=== PATIENT | male | born 1980 | race Caucasian/White ===

== ENCOUNTER → 2023-05-03 11:05 | Outpatient (OUT) | payer OTHER, SELFPAY ==
--- NOTE | 2023-05-03 11:13 | XR_ITS ---
The [address] [address] Patient Name: RHEA ANTOINE MRN: [id number] date: 1980 Sex: M Assigned Patient Location: [facility] Current Patient Location: Accession/Order Number: [id number] Exam Date: 05/03/2023 11:15 Report Date: 05/04/2023 07:26 At the request of: REESE HE Procedure: XR hand LT min 3V EXAM: XR hand LT min 3V HISTORY: Hand Pain COMPARISON: 02/05/2023. TECHNIQUE: Routine views of the XR hand LT min 3V FINDINGS/ XR/XR hand LT min 3V IMPRESSION: 1. No acute fractures. Chronic mild third middle phalangeal fracture deformity. 2. Unremarkable soft tissues. 3. Normal joint spacing. Electronically authenticated by: ADEN WOODS Date: 05/04/2023 07:26
== END | disposition home or self-care (01) ==
LOC: RAD 11:09
PROVIDERS: Visit Provider Orthopaedic Surgery
DX: S62.623D Displaced fracture of middle phalanx of left middle finger, subsequent encounter for fracture with routine healing (principal)
CPT/HCPCS: 73130

== ENCOUNTER 2024-07-24 11:43 | Outpatient (OUT) | payer OTHER, SELFPAY ==
--- OUTSIDE RECORDS SUMMARY | 2024-07-24 12:05 | XMS_ITS | CCD ---
Demographics Address [address] [place] [address] Home Phone Mobile Phone Preferred Language en Marital Status Scientologist Affiliation Unknown Race White Ethnic Group or Author Organization [facility] Care Team Providers Care Manager Labor Delivery Name Role Phone No, Physician Primary Care Provider Unavailabl e NO, PHYSICIAN Primary Care Unavailable PAWAN LLANOS Attending Unavail able Alpa LEMUS, [facility] Primary Care Provider [id number] Unavailable Primary Care Provider UnavailSolo Bautista DO Primary Care Provider [phone] Solo Arita DO Primary Care Provider [phone] Solo Arita DO Primary Care Provider No, Physician Primary Care Provider UnavailSOLO Bautista Primary Care Unavailable SOLO ARITA Referring Unavailable SOLO ARITA Primary Care Unavailable LAURENT SHEPARD Referring Unavailable SOLO ARITA Primary Care Unavailable LAURENT SHEPARD Referring Unavailable SOLO ARITA Primary Care Unavailable SOLO ARITA Attending Unavailable SOLO ARITA Referring Unavailable SOLO ARITA Referring Unavailable SOLO ARITA Primary Care Unavailable SOLO ARITA Primary Care Unavailable SOLO ARITA Primary Care Unavailable GEOVANNY LAMBERT Attending Unavailable SOLO ARITA Referring Unavailable SOLO ARITA Primary Care Unavailable Allergies Allergy Classification Reported Allergen(s) Allergy Type Date of Onset Reaction(s) Facility (4 sources) Acetaminophen / HYDROcodone Drug Allergy 3 [facility] (2 sources) HYDROcodone / Ibuprofen Drug Allergy 4 [email or web address] Medications Current Medications Medication Drug Class(es) Dates Sig (Normalized) Sig (Original) acetaminophen 325 mg / oxyCODONE hydrochloride 5 mg oral tablet (11 sources) Opioid Agonist Start: 07-30-2023 End: 08-06-2023 oxyCODONE-acetamin ophen (PERCOCET) 5-325 MG per tablet Indications: Chronic left-sided thoracic back pain Take 1 tablet by mouth every 6 hours as needed for Pain for up to 7 days. Intended supply: 3 days. Take lowest dose possible to manage pain Max Daily Amount: 4 tablets 28 tablet 0 07/30/2023 08/06/2023 Active Start: 11-06-2022 take 1 tablet by laina every twelve hours oxyCODONE-acetaminophen (PERCOCET) 5-325 MG per tablet TAKE ONE TABLET BY MOUTH EVERY 12 HOURS FOR 9 DAYS 0 11/06/2022 Active Start: 10-20-2022 End: 10-23-2022 oxyCODONE-acetaminophen (PER COCET) 5-325 MG per tablet Indications: Laceration of left ring finger without foreign body without damage to nail, initial encounter Take 1 tablet by mouth every 8 hours as needed for Pain for up to 3 days. Intended supply: 3 days. Take lowest dose possible to manage pain Max Daily Amount: 3 tablets 12 tablet 0 10/20/2022 10/23/2022 Active Start: 10-15-2022 End: 10-20-2022 oxyCODONE-acetaminophen (PER COCET) 5-325 MG per tablet Indications: Intractable pain , Right renal stone Take 1 tablet by mouth every 4 hours as needed for Pain for up to 5 days. Max Daily Amount: 6 tablets 20 tablet 0 10/15/2022 10/20/2022 Active [id number] 200 actuat albuterol 0.09 mg/actuat metered dose inhaler (4 sources) beta2-Adrenergic Agonist Start: 02-09-2023 take 2 puff(s) by inhalation four times daily as needed for wheezing albuterol sulfate HFA (VENTOLIN HFA) 108 (90 Base) MCG/ACT inhaler Indications: Cough in adult Inhale 2 puffs into the lungs 4 times daily as needed for Wheezing 18 g 5 02/09/2023 Active 24 hr amphetamine aspartate 1.25 mg / amphetamine sulfate 1.25 mg / dextroamphetamine saccharate 1.25 mg / dextroamphetamine sulfate 1.25 mg extended release oral capsule (4 sources) Central Nervous System Stimulant Start: 11-19-2023 End: 01-18-2024 take 1 capsule by mouth once daily amphetamine-dext roamphetamine (ADDERALL XR) 5 MG extended release capsule Indications: Attention deficit hyperactivity disorder (ADHD), predominantly inattentive type , Medication refill Take 1 capsule by mouth daily for 30 days. Max Daily Amount: 5 mg 30 capsule 0 12/19/2023 01/18/2024 Active Start: 06-30-2023 End: 07-30-2023 take 1 capsule by mouth once daily amphetamine-dextroamphetamine (ADDERALL XR) 5 MG extended release capsule Indications: Attention deficit hyperactivity disorder (ADHD), predominantly inattentive type Take 1 capsule by mouth daily for 30 days. Max Daily Amount: 5 mg 30 capsule 0 06/30/2023 Active baclofen 10 mg oral tablet (2 sources) gamma-Aminobutyric Acid-ergic Agonist Start: 06-30-2023 take 1 tablet by mouth three times daily baclofen (LIORESAL) 10 MG tablet Indications: Chronic left-sided thoracic back pain , Back strain, initial encounter Take 1 tablet by mouth 3 times daily 30 tablet 5 06/30/2023 Active 24 hr buPROPion hydrochloride 150 mg extended release oral tablet (4 sources) Aminoketone Start: 02-23-2024 take 1 tablet by mouth once daily in the morning buPROPion (WELLBUTRIN XL) 150 MG extended release tablet Indications: Depressed mood TAKE 1 TABLET BY MOUTH EVERY MORNING 30 tablet 5 02/23/2024 Active Start: 06-30-2023 take 1 tablet by laina th once daily in the morning buPROPion (WELLBUTRIN XL) 150 MG extended release tablet Indications: Depressed mood Take 1 tablet by mouth every morning 30 tablet 5 06/30/2023 Active cariprazine 1.5 mg oral capsule (1 source) Atypical Antipsychotic Start: 04-07-2024 take 1 capsule by mouth once daily cariprazine hcl (VRAYLAR) 1.5 MG capsule Indications: Depressed mood , Anxiety , Bipolar 1 disorder (HCC) Take 1 capsule by mouth daily LOTS [id number] EXP 06/13/2024 (3box) and [id number] EXP 06/13/2024 (1box) 28 capsule 04/07/2024 Active celecoxib 200 mg oral capsule (1 source) Nonsteroidal Anti-inflammatory Drug Start: 06-15-2023 celecoxib (CELEBREX) 200 MG capsule cephalexin 500 mg oral capsule (3 sources) Cephalosporin Antibacterial Start: 10-20-2022 take 1 capsule by mouth three times daily cephALEXin (KEFLEX) 500 MG capsule Take 1 capsule by mouth 3 times daily 21 capsule 0 10/20/2022 Active 12 hr cetirizine hydrochloride 5 mg / pseudoephedrine hydrochloride 120 mg extended release oral tablet (6 sources) alpha-Adrenergic Agonist, Histamine-1 Receptor Antagonist Start: 09-01-2023 take 5-120 mg by mouth once ALLERGY RELIEF/NASAL DECONGEST 5-120 MG per extended release tablet TAKE ONE TABLET BY MOUTH TWICE A DAY 60 tablet 5 09/01/2023 Active Start: 12-16-2022 End: 06-14-2023 take 5-120 mg by mouth once cetirizine-psuedoephedrine (ZYRTEC-D) 5- 120 MG per extended release tablet Take 1 tablet by mouth 2 times daily 60 tablet 5 12/16/2022 06/14/2023 Active ciprofloxacin 500 mg oral tablet (1 source) Quinolone Antimicrobial Start: 10-15-2022 End: 10-22-2022 take 1 tablet by mouth twice daily ciprofloxacin (CIPRO) 500 MG tablet Take 1 tablet by mouth 2 times daily for 7 days 14 tablet 0 10/15/2022 10/22/2022 Active 1 ml dexamethasone phosphate 10 mg/ml injection (1 source) Corticosteroid Start: 10-23-2021 dexamethasone (PF) (DECADRON) injection 10 mg Start: 10-23-2021 dexamethasone (PF) (DECADRON) injection 10 mg diclofenac sodium 50 mg delayed release oral tablet (9 sources) Nonsteroidal Anti-inflammatory Drug Start: 11-02-2023 take 1 tablet by mouth twice daily diclofenac (VOLTAREN) 50 MG EC tablet Indications: Acute pain of right shoulder , Right wrist pain , De Quervain's tenosynovitis, right , Tendinopathy of right rotator cuff , Biceps tendonitis on right Take 1 tablet by mouth 2 times daily 60 tablet 3 11/02/2023 Active Start: 07-13-2023 take 1 tablet by laina th twice daily diclofenac (VOLTAREN) 75 MG EC tablet Indications: Chronic left-sided thoracic back pain Take 1 tablet by mouth 2 times daily 60 tablet 2 07/13/2023 Active Start: 12-21-2022 diclofenac sod ium (VOLTAREN) 1 % GEL Apply 2 g topically 4 times daily 150 g 2 12/21/2022 Active Start: 10-22-2022 take 1 tablet by laina th twice daily diclofenac (VOLTAREN) 50 MG EC tablet Indications: Contusion of left hand including fingers, subsequent encounter , Laceration of left hand without foreign body, subsequent encounter , Nondisplaced fracture of distal phalanx of left middle finger, subsequent encounter for fracture with routine healing Take 1 tablet by mouth 2 times daily 60 tablet 0 10/22/2022 Active FLUoxetine 20 mg oral capsule (2 sources) Serotonin Reuptake Inhibitor Start: 09-04-2022 take 1 capsule by mouth once daily FLUoxetine (PROZAC) 20 MG capsule Indications: Anxiety , Bipolar 1 disorder (HCC) , Mixed obsessional thoughts and acts Take 1 capsule by mouth daily 30 capsule 0 09/04/2022 Active fluticasone propionate 0.05 mg/actuat metered dose nasal spray (5 sources) Corticosteroid Start: 04-19-2023 take 2 spray(s) nasal route once daily fluticasone (FLONASE) 50 MCG/ACT nasal spray Indications: Cough in adult , Nasal congestion , Medication refill 2 sprays by Each Nostril route daily 48 g 1 04/19/2023 Active Start: 02-04-2023 take 2 spray(s) nasa l route once daily fluticasone (FLONASE) 50 MCG/ACT nasal spray Indications: Cough in adult , Nasal congestion 2 sprays by Each Nostril route daily 48 g 1 02/04/2023 Active gabapentin 400 mg oral capsule (11 sources) Anti-epileptic Agent Start: 02-23-2024 End: 08-21-2024 take 1 capsule by mouth once daily in the morning, then take 1 capsule by mouth once daily in the evening gabapentin (NEURONTIN) 400 MG capsule Indications: Chronic left-sided thoracic back pain TAKE ONE CAPSULE BY MOUTH EVERY MORNING AND 1 CAP EVERY EVENING 180 capsule 1 02/23/2024 08/21/2024 Active Start: 08-06-2023 End: 02-02-2024 take 1 capsule by mouth in the morning gabapentin (NEURONTIN) 400 MG capsule Indications: Chronic left-sided thoracic back pain Take 1 capsule by mouth in the morning and 1 capsule in the evening. Do all this for 180 days. 180 capsule 1 08/06/2023 02/02/2024 Active Start: 07-09-2023 End: 12-08-2023 take 1 capsule by mouth once daily at bedtime gabapentin (NEURONTIN) 100 MG capsule Indications: Bipolar 1 disorder (HCC) , Mixed obsessional thoughts and acts , Anxiety TAKE (ONE) CAPSULE (100MG) BY MOUTH EVERY MORNING AND (4) CAPSULES (400MG) EVERY NIGHT AT BEDTIME 150 capsule 5 07/09/2023 12/08/2023 Active Start: 01-29-2023 End: 02-26-2023 take 1 capsule by mouth once daily in the morning, then take 4 capsules by mouth once daily at bedtime gabapentin (NEURONTIN) 100 MG capsule Indications: Bipolar 1 disorder (HCC) , Mixed obsessional thoughts and acts , Anxiety Take 100 mg PO qAM and 400 mg qHS Intended supply: 180 days 150 capsule 5 01/29/2023 02/26/2023 Active Start: 12-28-2022 End: 01-25-2023 take 1 capsule by mouth once daily in the morning, then take 2 capsules by mouth once daily at bedtime gabapentin (NEURONTIN) 100 MG capsule Indications: Bipolar 1 disorder (HCC) , Mixed obsessional thoughts and acts , Anxiety Take 100 mg PO qAM and 200 mg qHS Intended supply: 30 days 90 capsule 0 12/28/2022 01/25/2023 Active Start: 11-24-2022 End: 12-23-2022 take 1 capsule by mouth once daily in the morning, then take 2 capsules by mouth once daily at bedtime gabapentin (NEURONTIN) 100 MG capsule Indications: Bipolar 1 disorder (HCC) , Mixed obsessional thoughts and acts , Anxiety Take 100 mg PO qAM and 200 mg qHS Intended supply: 30 days 90 capsule 0 11/24/2022 12/23/2022 Active Start: 10-02-2022 End: 11-01-2022 take 1 capsule by mouth once daily in the morning, then take 2 capsules by mouth once daily at bedtime gabapentin (NEURONTIN) 100 MG capsule Indications: Bipolar 1 disorder (HCC) , Mixed obsessional thoughts and acts , Anxiety Take 100 mg PO qAM and 200 mg qHS Intended supply: 30 days 90 capsule 0 10/02/2022 11/01/2022 Active ibuprofen 800 mg oral tablet (1 source) Nonsteroidal Anti-inflammatory Drug Start: 04-10-2024 take 1 tablet by mouth twice daily as needed for pain ibuprofen (ADVIL;MOTRIN) 800 MG tablet Indications: Chronic right shoulder pain , Osteoarthritis of glenohumeral joint, right , Supraspinatus tendinitis, right Take 1 tablet by mouth 2 times daily as needed for Pain 180 tablet 1 04/10/2024 Active lidocaine 0.05 mg/mg medicated patch (6 sources) Antiarrhythmic, Amide Local Anesthetic Start: 10-19-2023 End: 04-16-2024 apply 1 dose transdermal route once daily lidocaine (LIDODERM) 5 % Indications: Medication refill Place 1 patch onto the skin daily 12 hours on, 12 hours off. 30 patch 5 10/19/2023 04/16/2024 Active Start: 07-13-2023 End: 10-11-2023 apply 1 dose transdermal route once daily lidocaine (LIDODERM) 5 % Indications: Chronic left-sided thoracic back pain Place 1 patch onto the skin daily 12 hours on, 12 hours off. 30 patch 2 07/13/2023 10/11/2023 Active Start: 10-20-2022 End: 10-20-2022 lidocaine 1 % injection 5 mL Start: 10-23-2021 End: 10-24-2021 Lidocaine (ASPERCREME) 4 % t opical patch 1 Patch Start: 10-23-2021 apply 1 dose topically once da louise lidocaine patch (LIDODERM) 5 % topical patch Apply 1 Patch daily 15 Patch 0 10/23/2021 Active melatonin 10 mg oral tablet (4 sources) Start: 10-19-2023 take 1 tablet by mouth once at bedtime Melatonin 10 MG TABS Indications: Difficulty falling asleep at night until face worker hours , Medication refill Take 10 mg by mouth at bedtime 90 tablet 3 10/19/2023 Active Start: 06-10-2023 take 1 tablet by laina th once daily melatonin (RA MELATONIN) 3 MG TABS tablet Indications: Difficulty falling asleep at night until face worker hours Take 1 tablet by mouth daily 30 tablet 3 06/10/2023 Active meloxicam 15 mg oral tablet (1 source) Nonsteroidal Anti-inflammatory Drug Start: 12-31-2023 take 1 tablet by mouth once daily meloxicam (MOBIC) 15 MG tablet Indications: Osteoarthritis of glenohumeral joint, right Take 1 tablet by mouth daily 30 tablet 5 12/31/2023 Active methocarbamol 500 mg oral tablet (1 source) Muscle Relaxant Start: 10-23-2021 take 1 tablet by mouth four times daily as needed methocarbamoL (ROBAXIN) 500 mg tablet Take 1 Tab by mouth four times a day as needed 24 Tab 0 10/23/2021 Active montelukast 10 mg oral tablet (4 sources) Leukotriene Receptor Antagonist Start: 02-23-2024 take 1 tablet by mouth once daily montelukast (SINGULAIR) 10 MG tablet TAKE 1 TABLET BY MOUTH DAILY 30 tablet 2 02/23/2024 Active Start: 11-12-2023 take 1 tablet by laina once daily montelukast (SINGULAIR) 10 MG tablet TAKE 1 TABLET BY MOUTH DAILY 30 tablet 2 11/12/2023 Active Start: 07-19-2023 take 1 tablet by laina once daily montelukast (SINGULAIR) 10 MG tablet Take 1 tablet by mouth daily 30 tablet 2 07/19/2023 Active nicotine 2 mg chewing gum (2 sources) Cholinergic Nicotinic Agonist Start: 07-23-2023 nicotine polacrilex (NICORETTE) 2 MG gum Indications: Nicotine dependence due to vaping tobacco product Weeks 1 to 6: Chew 1 piece of gum every 1 to 2 hours Weeks 7 to 9: Chew 1 piece of gum every 2 to 4 hours Weeks 10 to 12: Chew 1 piece of gum every 4 to 8 hours Maximum 24 pieces/day 110 each 3 07/23/2023 Active OLANZapine 10 mg oral tablet (2 sources) Atypical Antipsychotic Start: 09-04-2022 take 1 tablet by mouth once daily OLANZapine (ZYPREXA) 10 MG tablet Indications: Anxiety , Bipolar 1 disorder (HCC) , Mixed obsessional thoughts and acts Take 1 tablet by mouth nightly 30 tablet 0 09/04/2022 Active ondansetron 4 mg oral tablet (10 sources) Serotonin-3 Receptor Antagonist Start: 04-07-2024 take 1 tablet by mouth three times daily as needed for nausea ondansetron (ZOFRAN) 4 MG tablet Indications: Nausea Take 1 tablet by mouth 3 times daily as needed for Nausea or Vomiting 30 tablet 04/07/2024 Active Start: 10-19-2023 take 1 tablet by laina th three times daily as needed for nausea ondansetron (ZOFRAN-ODT) 4 MG disintegrating tablet Indications: Medication refill Take 1 tablet by mouth 3 times daily as needed for Nausea or Vomiting 21 tablet 2 10/19/2023 Active Start: 07-23-2023 take 1 tablet by laina th three times daily as needed for nausea ondansetron (ZOFRAN-ODT) 4 MG disintegrating tablet Indications: Medication refill Take 1 tablet by mouth 3 times daily as needed for Nausea or Vomiting 21 tablet 0 07/23/2023 Active Start: 01-21-2023 take 1 tablet by laina th three times daily as needed for nausea ondansetron (ZOFRAN-ODT) 4 MG disintegrating tablet Take 1 tablet by mouth 3 times daily as needed for Nausea or Vomiting 21 tablet 0 01/21/2023 Active Start: 10-14-2022 take 1 tablet by laina th three times daily as needed for nausea ondansetron (ZOFRAN) 4 MG tablet Indications: Ureteral stone with hydronephrosis Take 1 tablet by mouth 3 times daily as needed for Nausea or Vomiting 15 tablet 0 10/14/2022 Active tamsulosin hydrochloride 0.4 mg oral capsule (3 sources) alpha-Adrenergic Cristal Start: 10-14-2022 take 1 capsule by mouth once daily tamsulosin (FLOMAX) 0.4 MG capsule Indications: Ureteral stone with hydronephrosis Take 1 capsule by mouth daily 30 capsule 0 10/14/2022 Active traMADol hydrochloride 50 mg oral tablet (1 source) Opioid Agonist Start: 12-21-2022 End: 12-28-2022 take 1 tablet by mouth every six hours as needed for pain traMADol (ULTRAM) 50 MG tablet Indications: Abnormal MRI, thoracic spine Take 1 tablet by mouth every 6 hours as needed for Pain for up to 7 days. Intended supply: 3 days. Take lowest dose possible to manage pain Max Daily Amount: 200 mg 12 tablet 0 12/21/2022 12/28/2022 Active triamcinolone acetonide 1 mg/ml topical cream (5 sources) Corticosteroid Start: 04-19-2023 triamcinolone (KENALOG) 0.1 % cream Indications: Eczema of both hands Apply topically 2 times daily. 28.4 g 1 04/19/2023 Active Start: 07-29-2021 End: 08-12-2021 triamcinolone (KENALOG) 0.1 % cream Indications: Hand dermatitis Apply topically 2 (two) times a day for 14 days . 80 g 0 07/29/2021 08/12/2021 Active Completed/Discontinued Medications Medication Drug Class(es) Dates Sig (Normalized) Sig (Original) acetaminophen 325 mg oral tablet (1 source) Start: 10-20-2022 End: 10-20-2022 acetaminophen (TYLENOL) tablet 650 mg ceFAZolin (ANCEF) 1,000 mg in sodium chloride 0.9 % 50 mL IVPB (mini-bag) (1 source) Start: 10-20-2022 End: 10-20-2022 ceFAZolin (ANCEF) 1,000 mg in sodium chloride 0.9 % 50 mL IVPB (mini-bag) diazePAM 5 mg oral tablet (1 source) Benzodiazepine Start: 10-23-2021 End: 10-23-2021 diazePAM (VALIUM) tablet 5 mg 2 ml fentaNYL 0.05 mg/ml injection (1 source) Opioid Agonist Start: 10-20-2022 End: 10-20-2022 fentaNYL (SUBLIMAZE) injection 100 mcg 1 ml ketorolac tromethamine 30 mg/ml cartridge (2 sources) Nonsteroidal Anti-inflammatory Drug, Cyclooxygenase Inhibitor Start: 10-01-2022 End: 10-01-2022 ketorolac (TORADOL) injection 30 mg Start: 10-23-2021 End: 10-23-2021 ketorolac (TORADOL) injectio n 15 mg Problems Active Problems Problem Classification Problem Date Documented Date Episodic/Chronic Anxiety disorders (20 sources) Anxiety; Translations: [Anxiety disorder, unspecified] Onset: 09-04-2022 Chronic Attention-deficit, conduct, and disruptive behavior disorders (2 sources) Attention deficit hyperactivity disorder, predominantly inattentive type; Translations: [Attention-deficit hyperactivity disorder, predominantly inattentive type] Onset: 10-19-2023 10-19-2023 Chronic Conditions associated with dizziness or vertigo (1 source) Peripheral vertigo; Translations: [Other peripheral vertigo, right ear] Episodic Mood disorders (20 sources) Bipolar I disorder; Translations: [Bipolar disorder, unspecified] Onset: 09-04-2022 Chronic Open wounds of extremities (2 sources) Laceration of left middle finger; Translations: [Laceration without foreign body of left middle finger without damage to nail, initial encounter] Episodic Other acquired deformities (2 sources) Contracture of joint of left hand; Translations: [Contracture, left hand] Onset: 11-30-2023 11-30-2023 Chronic Other circulatory disease (1 source) Elevated blood pressure; Translations: [Elevated blood-pressure reading, without diagnosis of hypertension] Episodic Other connective tissue disease (1 source) Pain in bilateral legs; Translations: [Pain in right leg] Episodic Other non-traumatic joint disorders (1 source) Shoulder pain; Translations: [Pain in left shoulder] Episodic Other screening for suspected conditions (not mental disorders or infectious disease) (2 sources) Magnetic resonance imaging of thoracic spine abnormal; Translations: [Abnormal findings on diagnostic imaging of other parts of musculoskeletal system] 07-14-2023 Episodic Residual codes; unclassified (1 source) Edema of lower leg ; Translations: [Localized edema] Episodic Substance-related disorders (4 sources) Tobacco dependence in remission; Translations: [Nicotine dependence, cigarettes, in remission] Onset: 06-30-2023 06-30-2023 Chronic Superficial injury; contusion (1 source) Contusion of left hand; Translations: [Contusion of left hand, initial encounter] Episodic Past or Other Problems Problem Classification Problem Date Documented Da te Episodic/Chronic Allergic reactions (20 sources) Hand eczema; Translations: [Dermatitis, unspecified] Onset: 02-04-1997 Episodic Fracture of upper limb (9 sources) Closed fracture of middle phalanx of middle finger; Translations: [Nondisplaced fracture of middle phalanx of left middle finger, initial encounter for closed fracture] Onset: 11-30-2023 Resolved: 01-07-2024 Episodic Nausea and vomiting (17 sources) Intractable nausea and vomiting; Translations: [Nausea with vomiting, unspecified] Onset: 10-14-2022 Resolved: 01-29-2023 10-14-2022 Episodic Other connective tissue disease (1 source) Bicipital tendinitis, right shoulder; Translations: [Bicipital tendinitis, right shoulder] Onset: 12-27-2023 Episodic Other connective tissue disease (1 source) Unspecified disorder of synovium and tendon, right shoulder; Translations: [Unspecified disorder of synovium and tendon, right shoulder] Onset: 12-27-2023 Episodic Other infections; including parasitic (19 sources) Personal history of other infectious and parasitic diseases; Translations: [History of COVID-19] Onset: 09-04-2022 09-04-2022 Episodic Other lower respiratory disease (2 sources) Hemoptysis; Translations: [Hemoptysis] Onset: 12-03-2023 12-03-2023 Episodic Other lower respiratory disease (2 sources) Dyspnea; Translations: [Shortness of breath] Onset: 12-03-2023 12-03-2023 Episodic Other lower respiratory disease (2 sources) Hemoptysis; Translations: [Hemoptysis] Onset: 12-03-2023 Episodic Other lower respiratory disease (2 sources) Shortness of breath; Translations: [Shortness of breath] Onset: 12-03-2023 Episodic Other non-traumatic joint disorders (1 source) Pain in right shoulder; Translations: [Pain in right shoulder] Onset: 12-27-2023 Episodic Spondylosis; intervertebral disc disorders; other back problems (4 sources) Acute low back pain; Translations: [Acute right-sided low back pain without sciatica] Onset: 10-19-2023 Episodic Sprains and strains (1 source) Strain of unspecified muscle, fascia and tendon at shoulder and upper arm level, right arm, initial encounter; Translations: [Strain of unspecified muscle, fascia and tendon at shoulder and upper arm level, right arm, initial encounter] Onset: 05-07-2023 Episodic Results Test Name Value Interpretation Reference Range Facility MRI SHOULDER RIGHT WO CONTRA STon 12-30-2023 MRI SHOULDER RIGHT WO CONTRAST HISTORY: Pain along the anterior aspect of the right shoulder for the past 6-8 months. Decreased range of motion. MRI SHOULDER RIGHT WO CONTRAST: 12/27/2023 9:01 AM EDT COMPARISON: Radiographs right shoulder 05/07/2023. TECHNIQUE: Multiplanar, multisequence MRI images of the shoulder were obtained. FINDINGS: ACROMIOCLAVICULAR JOINT AND ROTATOR CUFF OUTLET: There are mild degenerative changes of the acromioclavicular joint. There is moderate subchondral erosive change and bone marrow edema involving the distal clavicle. There is also moderate bone marrow edema within the acromion adjacent to the joint. There is a type II acromion and small subacromial enthesophyte causing mild narrowing of the supraspinatus outlet. There is a small amount of edema-like signal in the subacromial/subdeltoid space. ROTATOR CUFF: There is mild tendinopathy of the anterior supraspinatus tendon at its insertion. No significant rotator cuff tear is seen. No atrophy or strain of the rotator cuff musculature is seen. The bulk of the rotator cuff musculature appears within normal limits. BICEPS TENDON AND LABRUM: The long bicipital tendon appears grossly within normal limits and is located within the bicipital groove. There is a moderate amount of fluid surrounding the tendon within the bicipital groove. The labrum appears grossly within normal limits. GLENOHUMERAL JOINT: There are mild degenerative changes of the glenohumeral joint with marginal osteophyte formation of the inferior glenoid. No joint effusion. BONES: The bone marrow signal intensity is age appropriate. IMPRESSION: 1. Mild tendinopathy of the anterior supraspinatus tendon, but no rotator cuff tear is seen. 2. Mild subacromial/subdeltoid bursitis. 3. 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 4. Mild osteoarthritis of the glenohumeral joint. 5. Possible tenosynovitis surrounding the long bicipital tendon within the bicipital groove. However, no significant tendinopathy or tear of the tendon is seen. Interpreted by: Saravanan Elena MD Signed by: Saravanan Elena MD 12/30/23 Final result Normal [facility] Basic Metabolic Profon 12-02 Anion gap [Moles/Vol] 8 mmol/L Low 02-28 [facility] Comment on above: Performed By: #### B ADALGISA CDP #### [facility] [address] [place] [address] Csr Technician: Srinivas Crow MD BUN/CRE Ratio 20 Normal 03-03 [facility] Comment on above: Performed By: #### B ADALGISA CDP #### [facility] [address] [place] [address] Csr Technician: Srinivas Crow MD Calcium [Mass/Vol] 9.2 mg/dL Normal 8.6-10.4 [facility] Comment on above: Performed By: #### B ADALGISA, CDP #### [facility] [address] [place], [place] [id number] Csr Technician: Srinivas Crow MD Chloride [Moles/Vol] 105 mmol/L Normal 98-107 [facility] Comment on above: Performed By: #### B MP, CDP #### [facility] [address] [place], [place] [id number] Csr Technician: Srinivas Crow MD CO2 [Moles/Vol] 29 mmol/L Normal 20-31 [facility] Comment on above: Performed By: #### B ADALGISA, CDP #### [facility] [address] [place] [address] Csr Technician: Srinivas Crow MD Creatinine [Mass/Vol] 1.0 mg/dL Normal 0.7-1.2 [facility] Comment on above: Performed By: #### B ADALGISA, CDP #### [facility] [address] [place] [address] Csr Technician: Srinivas Crow MD GFR/1.73 sq M.predicted among non-blacks MDRD (S/P/Bld) [Vol rate/Area] mL/min/{1.73_m2} Normal >60 [facility] Comment on above: Result Comment: These results are not intended for use in patients <18 years of age. eGFR results are calculated without a race factor using the 2020 CKD-EPI equation. Careful clinical correlation is recommended, particularly when comparing to results calculated using previous equations. The CKD-EPI equation is less accurate in patients with extremes of muscle mass, extra-renal metabolism of creatine, excessive creatine ingestion, or following therapy that affects renal tubular secretion. Performed By: #### B MP, CDP #### [facility] [address] [place] [address] Csr Technician: Srinivas Crow MD Glucose [Mass/Vol] 93 mg/dL Normal 70-99 [facility] Comment on above: Performed By: #### B ADALGISA, CDP #### [facility] [address] [place], [place] [id number] Csr Technician: Srinivas Crow MD Potassium [Moles/Vol] 4.3 mmol/L Normal 3.7-5.3 [facility] Comment on above: Performed By: #### B ADALGISA, CDP #### [facility] [address] [place], [place] [id number] Csr Technician: Srinivas Crow MD Sodium [Moles/Vol] 142 mmol/L Normal 135-144 [facility] Comment on above: Performed By: #### B ADALGISA, CDP #### [facility] [address] [place], [place] [id number] Csr Technician: Srinivas Crow MD Urea nitrogen [Mass/Vol] 20 mg/dL Normal 6-20 [facility] Comment on above: Performed By: #### B ADALGISA, CDP #### [facility] [address] [place], [place] [id number] Csr Technician: Srinivas Crow MD CBC with Diffon 12-03-2023 Abs. Basophil 0.04 k/uL Normal 0.00-0.20 [facility] Comment on above: Performed By: #### B ADALGISA, CDP #### [facility] [address] [place], [place] [id number] Csr Technician: Srinivas Crow MD Abs.Imm.Granulocyte 0.02 k/uL Normal 0.00-0.30 [facility] Comment on above: Performed By: #### B ADALGISA, CDP #### [facility] [address] [place], [place] [id number] Csr Technician: Srinivas Crow MD Abs.Neutrophil (Seg) 4.16 k/uL Normal 2.1-6.5 [facility] Comment on above: Performed By: #### B ADALGISA, CDP #### [facility] [address] [place] [address] Csr Technician: Srinivas Crow MD Basophils/100 WBC (Bld) 1 % Normal 0-2 [facility] Comment on above: Performed By: #### B MP, CDP #### [facility] [address] [place] [address] Csr Technician: Srinivas Crow MD Eosinophils (Bld) [#/Vol] 0.16 10*3/uL Normal 0.00-0.40 [facility] Comment on above: Performed By: #### B MP, CDP #### [facility] [address] [place] [address] Csr Technician: Srinivas Crow MD Eosinophils/100 WBC (Bld) 3 % Normal 0-5 [facility] Comment on above: Performed By: #### B ADALGISA, CDP #### [facility] [address] [place] [address] Csr Technician: Srinivas Crow MD Erythrocyte distribution width (RBC) [Ratio] 13.6 % Normal 12.1-15.2 [facility] Comment on above: Performed By: #### B MP, CDP #### [facility] [address] [place] [address] Csr Technician: Srinivas Crow MD Hematocrit (Bld) [Volume fraction] 43.0 % Normal 41.0-53.0 [facility] Comment on above: Performed By: #### B MP, CDP #### [facility] [address] [place] [address] Csr Technician: Srinivas Crow MD Hemoglobin (Bld) [Mass/Vol] 15.0 g/dL Normal 13.5-17.5 [facility] Comment on above: Performed By: #### B MP, CDP #### [facility] [address] [place], [place] [id number] Csr Technician: Srinivas Crow MD Immature granulocytes/100 WBC (Bld) 0 % Normal 0-5 [facility] Comment on above: Performed By: #### B ADALGISA, CDP #### [facility] [address] [place] [address] Csr Technician: Srinivas Crow MD Lymphocytes (Bld) [#/Vol] 1.29 10*3/uL Normal 1.00-4.80 [facility] Comment on above: Performed By: #### B ADALGISA, CDP #### [facility] [address] [place] [address] Csr Technician: Srinivas Crow MD Lymphocytes/100 WBC (Bld) 21 % Normal 13-44 [facility] Comment on above: Performed By: #### B ADALGISA, CDP #### [facility] [address] [place] [address] Csr Technician: Srinivas Crow MD MCH (RBC) [Entitic mass] 31.7 pg Normal 26.0-34.0 [facility] Comment on above: Performed By: #### B ADALGISA, CDP #### [facility] [address] [place] [address] Csr Technician: Srinivas Crow MD MCHC (RBC) [Mass/Vol] 34.9 g/dL Normal 31.0-37.0 [facility] Comment on above: Performed By: #### B ADALGISA, CDP #### [facility] [address] [place] [address] Csr Technician: Srinivas Crow MD MCV (RBC) [Entitic vol] 90.9 fL Normal 80.0-100.0 [facility] Comment on above: Performed By: #### B ADALGISA, CDP #### [facility] [address] [place] [address] Csr Technician: Srinivas Crow MD Monocytes (Bld) [#/Vol] 0.48 10*3/uL Normal 0.00-1.00 [facility] Comment on above: Performed By: #### B MP, CDP #### [facility] [address] [place], [place] [phone] Csr Technician: Srinivas Crow MD Monocytes/100 WBC (Bld) 8 % Normal 5-9 [facility] Comment on above: Performed By: #### B MP, CDP #### [facility] [address] [place] [address] ([phone] Csr Technician: Srinivas Crow MD Neutrophil (Seg) 67 % Normal 39-75 [facility] Comment on above: Performed By: #### B MP, CDP #### [facility] [address] [place], [place] [phone] ([phone] Csr Technician: Srinivas Crow MD Platelet mean volume (Bld) [Entitic vol] 10.8 fL Normal 6.0-12.0 [facility] Comment on above: Performed By: #### B MP, CDP #### [facility] [address] [place], [place] [phone] ([phone] Csr Technician: Srinivas Crow MD Platelets (Bld) [#/Vol] 195 10*3/uL Normal 140-450 [facility] Comment on above: Performed By: #### B MP, CDP #### [facility] [address] [place] [address] Csr Technician: Srinivas Crow MD RBC (Bld) [#/Vol] 4.73 10*6/uL Normal 4.50-5.90 [facility] Comment on above: Performed By: #### B MP, CDP #### [facility] [address] [place] [address] Csr Technician: Srinivas Crow MD WBC (Bld) [#/Vol] 6.2 10*3/uL Normal 3.5-11.0 [facility] Comment on above: Performed By: #### B MP, CDP #### [facility] [address] [place] [address] Csr Technician: Srinivas Crow MD XR CHEST (2 VW)on 12-03-2023 XR CHEST (2 VW) EXAM: XR CHEST (2 VW ) HISTORY: Hemoptysis COMPARISON: None. IMPRESSION: FINDINGS/IMPRESSION: Normal sized heart with clear lungs. Interpreted by: Priyank Cruz Jr., MD Signed by: Priyank Cruz Jr., MD 12/03/23 Final result Normal [facility] XR Chest 2 Viewson FINDINGS/IMPRESSION: Normal sized heart with clear lungs. [facility] EXAM: XR CHEST (2 VW ) HISTORY: Hemoptysis COMPARISON: None. [facility] Priyank Cruz Jr., MD - 12/03/2023 EXAM: XR CHEST (2 VW) HISTORY: Hemoptysis COMPARISON: None. IMPRESSION: FINDINGS/IMPRESSION: Normal sized heart with clear lungs. [facility] Radiology Study observation (narrative) [facility] XR Chest 2 ViewsOrdered By: Priyank Cruz on 12-03-2023 [facility] Work Phone: XR SHOULDER RIGHT (MIN 2 VIE WS)on 05-07-2023 XR SHOULDER RIGHT (MIN 2 VIEWS) IMAGES REVIEWED: XR SHOULDER RIGHT (MIN 2 VIEWS) COMPARISON: None available. CLINICAL INDICATION: right shoulder pain IMPRESSION: FINDINGS/IMPRESSION: No evidence of acute osseous abnormality of the right shoulder. Interpreted by: Miguelangel Kingston MD Signed by: Miguelangel Kingston MD 05/07/23 Final result Normal [facility] XR HAND LEFT (MIN 3 VIEWS)on 02-05-2023 FINDINGS/IMPRESSION: 1. Healed fractures third and fifth fingers. 2. No acute change. [facility] EXAM: XR HAND LEFT (MIN 3 VIEWS) HISTORY: Disp fx of dist phalanx of L little finger, init for open fx. COMPARISON: 01/01/2023. [facility] Priyank Cruz Jr., MD - 02/05/2023 EXAM: XR HAND LEFT (MIN 3 VIEWS) HISTORY: Disp fx of dist phalanx of L little finger, init for open fx. COMPARISON: 01/01/2023. IMPRESSION: FINDINGS/IMPRESSION: 1. Healed fractures third and fifth fingers. 2. No acute change. [facility] Radiology Study observation (narrative) [facility] XR HAND LEFT (MIN 3 VIEWS)Or dered By: Priyank Cruz on 02-05-2023 [facility] [employer] Work Phone: XR HAND LEFT (MIN 3 VIEWS)on 11-27-2022 FINDINGS/IMPRESSION: 1. Left 3rd digit middle phalanx fracture in near-anatomic alignment unchanged. 2. Undisplaced tuft fracture distal phalanx 5th finger with continued healing. [facility] EXAM: XR HAND LEFT (MIN 3 VIEWS) HISTORY: Closed displaced fracture of distal phalanx of left little finger with routine healing, subsequent encounter COMPARISON: 11/19/2022 [facility] Priyank Cruz Jr., MD - 11/27/2022 EXAM: XR HAND LEFT (MIN 3 VIEWS) HISTORY: Closed displaced fracture of distal phalanx of left little finger with routine healing, subsequent encounter COMPARISON: 11/19/2022 IMPRESSION: FINDINGS/IMPRESSION: 1. Left 3rd digit middle phalanx fracture in near-anatomic alignment unchanged. 2. Undisplaced tuft fracture distal phalanx 5th finger with continued healing. [facility] Radiology Study observation (narrative) [facility] XR HAND LEFT (MIN 3 VIEWS)Or dered By: Priyank Cruz on 11-27-2022 [facility] Work Phone: XR HAND LEFT (MIN 3 VIEWS)on 11-13-2022 FINDINGS/IMPRESSION: 1. No change in the middle phalanx fracture third digit. 2. Mild soft tissue swelling. [facility] EXAM: XR HAND LEFT (MIN 3 VIEWS) HISTORY: Closed displaced fracture of distal phalanx of left little finger with routine healing. COMPARISON: 11/06/2022. [facility] Priyank Cruz Jr., MD - 11/13/2022 EXAM: XR HAND LEFT (MIN 3 VIEWS) HISTORY: Closed displaced fracture of distal phalanx of left little finger with routine healing. COMPARISON: 11/06/2022. IMPRESSION: FINDINGS/IMPRESSION: 1. No change in the middle phalanx fracture third digit. 2. Mild soft tissue swelling. [employer] Phone: Radiology Study observation (narrative) [employer] Phone: XR HAND LEFT (MIN 3 VIEWS)Or dered By: Priyank Cruz on 11-13-2022 [employer] Phone: XR HAND LEFT (MIN 3 VIEWS)on 11-06-2022 FINDINGS/IMPRESSION: 1. Predominantly transverse, nonarticular, fracture middle phalanx left 3rd digit without significant displacement. 2. No change. [facility] EXAM: XR HAND LEFT (MIN 3 VIEWS) HISTORY: Closed nondisplaced fracture of distal phalanx of left little finger, initial encounter COMPARISON: 10/30/2022 [facility] Priyank Cruz Jr., MD - 11/06/2022 EXAM: XR HAND LEFT (MIN 3 VIEWS) HISTORY: Closed nondisplaced fracture of distal phalanx of left little finger, initial encounter COMPARISON: 10/30/2022 IMPRESSION: FINDINGS/IMPRESSION: 1. Predominantly transverse, nonarticular, fracture middle phalanx left 3rd digit without significant displacement. 2. No change. [employer] Phone: Radiology Study observation (narrative) [employer] Phone: XR HAND LEFT (MIN 3 VIEWS)Or dered By: Priyank Cruz on 11-06-2022 [employer] Phone: XR HAND LEFT (MIN 3 VIEWS)on 10-20-2022 FINDINGS/IMPRESSION: 1. Fracture middle phalanx 3rd digit with overlying laceration. 2. Fracture distal phalanx 5th finger. [facility] EXAM: XR HAND LEFT (MIN 3 VIEWS) HISTORY: Reason for exam:->Contusion to third fourth and fifth fingers with lacerations COMPARISON: None. [facility] Priyank Cruz Jr., MD - 10/20/2022 EXAM: XR HAND LEFT (MIN 3 VIEWS) HISTORY: Reason for exam:->Contusion to third fourth and fifth fingers with lacerations COMPARISON: None. IMPRESSION: FINDINGS/IMPRESSION: 1. Fracture middle phalanx 3rd digit with overlying laceration. 2. Fracture distal phalanx 5th finger. [employer] Phone: Radiology Study observation (narrative) [employer] Phone: XR HAND LEFT (MIN 3 VIEWS)Or dered By: Priyank Cruz on 10-20-2022 [employer] Phone: XR SHOULDER LEFT (MIN 2 VIEW S)on 10-01-2022 Negative. [facility] EXAM: XR SHOULDER LE FT (MIN 2 VIEWS) HISTORY: The patient is a 42-year-old male. Reason for exam:->pain COMPARISON: None. FINDINGS: The left shoulder is radiographically negative with no evidence of fracture, dislocation, calcific tendonitis, or other osseous or articular abnormalities. The glenohumeral joint is grossly maintained. The acromioclavicular joint is maintained. The subacromial space is maintained. [facility] Remigio Hayden M D - 10/01/2022 EXAM: XR SHOULDER LEFT (MIN 2 VIEWS) HISTORY: The patient is a 42-year-old male. Reason for exam:->pain COMPARISON: None. FINDINGS: The left shoulder is radiographically negative with no evidence of fracture, dislocation, calcific tendonitis, or other osseous or articular abnormalities. The glenohumeral joint is grossly maintained. The acromioclavicular joint is maintained. The subacromial space is maintained. IMPRESSION: Negative. [employer] Phone: Radiology Study observation (narrative) [employer] Phone: XR SHOULDER LEFT (MIN 2 VIEW S)Ordered By: Remigio Hayden on 10-01-2022 [facility] Work Phone: CBC with Auto Differentialon 09-04-2022 Absolute Eos # 0.[address] [facility] Absolute Lymph # 1.[address] [facility] [facility] Absolute Alcorn # 0.[address] [facility] [facility] Basophils (Bld) [#/Vol] 0.00 10*3/uL [facility] Basophils/100 WBC (Bld) 1 % 0 - 2 % [facility] Differential Type YES [facility] Eosinophils/100 WBC (Bld) 3 % 0 - 5 % [facility] Hematocrit (Bld) [Volume fraction] 44.3 % 41 - 53 % [facility] Hemoglobin (Bld) [Mass/Vol] 15.4 g/dL 13.5 - 17.5 g/dL [facility] Interpretation and review of laboratory results Abnormal [facility] Lymphocytes/100 WBC (Bld) 24 % 13 - 44 % [facility] MCH (RBC) [Entitic mass] 31.0 pg 26 - 34 pg [facility] MCHC (RBC) [Mass/Vol] 34.7 g/dL 31 - 37 g/dL [facility] MCV (RBC) [Entitic vol] 89.6 fL 80 - 100 fL [facility] Monocytes/100 WBC (Bld) 10 % High 5 - 9 % [facility] Platelet distribution width (Bld) [Ratio] 14.3 % 12.1 - 15.2 % [facility] Platelets (Bld) [#/Vol] 223 10*3/uL [facility] RBC (Bld) [#/Vol] 4.95 10*6/uL 4.5 - 5.9 m/uL [facility] Segmented neutrophils/100 WBC (Bld) 62 % 39 - 75 % [facility] Segs Absolute 4.60 [facility] WBC (Bld) [#/Vol] 7.3 10*3/uL [facility] Comprehensive Metabolic Pane marisa 09-04-2022 Albumin [Mass/Vol] 4.6 g/dL 3.5 - 5.2 g/dL [facility] ALP [Catalytic activity/Vol] 102 U/L 40 - 129 U/L [facility] ALT [Catalytic activity/Vol] 39 U/L 5 - 41 U/L [facility] Anion gap [Moles/Vol] 8 mmol/L Low 9 - 17 mmol/L [facility] AST [Catalytic activity/Vol] 22 U/L NINF - 40 U/L [facility] Bilirubin [Mass/Vol] 0.5 mg/dL 0.3 - 1.2 mg/dL [facility] Calcium [Mass/Vol] 9.4 mg/dL 8.6 - 10. 4 mg/dL [facility] Chloride [Moles/Vol] 106 mmol/L 98 - 107 mmol/L [facility] CO2 [Moles/Vol] 26 mmol/L 20 - 31 mmol/L [facility] Creatinine [Mass/Vol] 1 mg/dL 0.70 - 1.20 mg/dL [facility] GFR/1.73 sq M.predicted MDRD (S/P/Bld) [Vol rate/Area] - PINF [facility] Comment on above: These results are not intended for use in patients <18 years of age. eGFR results are calculated without a race factor using the 2020 CKD-EPI equation. Careful clinical correlation is recommended, particularly when comparing to results calculated using previous equations. The CKD-EPI equation is less accurate in patients with extremes of muscle mass, extra-renal metabolism of creatine, excessive creatine ingestion, or following therapy that affects renal tubular secretion. Glucose [Mass/Vol] 98 mg/dL 70 - 99 mg/dL [facility] Interpretation and review of laboratory results Abnormal [facility] Potassium [Moles/Vol] 4.5 mmol/L 3.7 - 5.3 mmol/L [facility] Protein [Mass/Vol] 7.2 g/dL 6.4 - 8.3 g/dL [facility] Sodium [Moles/Vol] 140 mmol/L 135 - 144 mmol/L [facility] Urea nitrogen [Mass/Vol] 21 mg/dL High 6 - 20 mg/dL [facility] Urea nitrogen/Creatinine (Bld) [Mass ratio] 21 High 9 - 20 [facility] Lipid Panelon 09-04-2022 Cholesterol [Mass/Vol] 150 mg/dL NINF - 200 mg/dL [facility] Comment on above: Cholesterol Guidelines: <200 Desirable 200-240 Borderline >240 Undesirable Cholesterol in HDL [Mass/Vol] 47 mg/dL 40 - PINF mg/dL [facility] Comment on above: HDL Guidelines: <40 Undesirable 40-59 Borderline >59 Desirable Cholesterol in LDL [Mass/Vol] 90 mg/dL 0 - 130 mg/dL [facility] Comment on above: LDL Guidelines: <100 Desirable 100-129 Near to/above Desirable 130-159 Borderline >159 Undesirable Direct (measured) LDL and calculated LDL are not interchangeable tests. Cholesterol.total/C holesterol in HDL [Mass ratio] 3.2 {ratio} NINF - 5 [facility] Triglyceride [Mass/Vol] 65 mg/dL NINF - 150 mg/dL [facility] Comment on above: Triglyceride Guidelines: <150 Desirable 150-199 Borderline 200-499 High >499 Very high Based on AHA Guidelines for fasting triglyceride, March 2012. [facility] Patient Fasting?on 3 Patient Fasting? YES [facility] Vital Signs Date Time Vital Sign Value Performing Clinician Facility 10-20-2022 12:21-0400 Body mass index (BMI) [Ratio] 28.92 kg/m2 Geovanny Lambert MD Work Phone: [facility] 10-20-2022 12:21-0400 Body temperature 97.5 [degF] Geovanny Lambert MD Work Phone: [facility] 10-20-2022 12:21-0400 Body weight 86.27 kg Geovanny Lambert MD Work Phone: [facility] 10-20-2022 12:21-0400 Diastolic blood pressure 77 mm[Hg] Geovanny Lambert MD Work Phone: [employer] 10-20-2022 12:21-0400 Heart rate 60 /min Geovanny Lambert MD Work Phone: [facility] [employer] 10-20-2022 12:21-0400 Respiratory rate 20 /min Geovanny Lambert MD Work Phone: [facility] [employer] 10-20-2022 12:21-0400 SaO2% (BldA) [Mass fraction] 100 % Geovanny Lambert MD Work Phone: [employer] 10-20-2022 12:21-0400 Systolic blood pressure 143 mm[Hg] Geovanny Lambert MD Work Phone: [facility] [employer] 10-01-2022 19:19-0400 Body height 172.7 cm Samia Bowers DO Work Phone: [employer] 10-01-2022 19:19-0400 Body mass index (BMI) [Ratio] 28.62 kg/m2 Samia Bowers DO Work Phone: [employer] 10-01-2022 19:19-0400 Body temperature 98.2 [degF] Samia Bowers DO Work Phone: [employer] 10-01-2022 19:19-0400 Body weight 85.37 kg Samia Bowers DO Work Phone: [employer] 10-01-2022 19:19-0400 Diastolic blood pressure 82 mm[Hg] Samia Bowers DO Work Phone: [employer] 10-01-2022 19:19-0400 Heart rate 67 /min Samia Bowers DO Work Phone: [employer] 10-01-2022 19:19-0400 Respiratory rate 20 /min Samia Bowers DO Work Phone: [employer] 10-01-2022 19:19-0400 SaO2% (BldA) [Mass fraction] 98 % Samia Bowers DO Work Phone: [employer] 10-01-2022 19:19-0400 Systolic blood pressure 134 mm[Hg] Samia Bowers DO Work Phone: [facility] [employer] 08-21-2022 19:46-0500 Body temperature 99.5 [degF] Scottie Sidhu MD Work Phone: [facility] [employer] 08-21-2022 19:46-0500 Body weight 86.91 kg Scottie Sidhu MD Work Phone: [facility] [employer] 08-21-2022 19:46-0500 Diastolic blood pressure 87 mm[Hg] Scottie Sidhu MD Work Phone: [facility] [employer] 08-21-2022 19:46-0500 Heart rate 70 /min Scottie Sidhu MD Work Phone: [facility] [employer] 08-21-2022 19:46-0500 Respiratory rate 16 /min Scottie Sidhu MD Work Phone: [facility] [employer] 08-21-2022 19:46-0500 SaO2% (BldA) [Mass fraction] 97 % Scottie Sidhu MD Work Phone: [facility] [facility] [employer] 08-21-2022 19:46-0500 Systolic blood pressure 131 mm[Hg] Scottie Sidhu MD Work Phone: [facility] [employer] 10-23-2021 23:02-0400 Diastolic blood pressure 73 mm[Hg] Blue Goins MD Work Phone: [employer] 10-23-2021 23:02-0400 Heart rate 59 /min Blue Goins MD Work Phone: [employer] 10-23-2021 23:02-0400 Respiratory rate 16 /min Blue Goins MD Work Phone: [employer] 10-23-2021 23:02-0400 SaO2% (BldA) [Mass fraction] 97 % Blue Goins MD Work Phone: [facility] 10-23-2021 23:02-0400 Systolic blood pressure 118 mm[Hg] Blue Goins MD Work Phone: [facility] 10-23-2021 21:24-0400 Body height 172.7 cm Blue Goins MD Work Phone: [facility] 10-23-2021 21:24-0400 Body mass index (BMI) [Ratio] 32.69 kg/m2 Blue Goins MD Work Phone: [facility] 10-23-2021 21:24-0400 Body temperature 98.49 [degF] Blue Goins MD Work Phone: [facility] 10-23-2021 21:24-0400 Body weight 97.52 kg Blue Goins MD Work Phone: [facility] 07-29-2021 13:26-0500 Diastolic blood pressure 67 mm[Hg] Pawan Llanos PLANISHING PRESS OPERATOR Work Phone: [facility] Comment on above: recheck 07-29-2021 13:26-0500 Systolic blood pressure 133 mm[Hg] Pawan Llanos PLANISHING PRESS OPERATOR Work Phone: [facility] Comment on above: recheck 07-29-2021 11:11-0500 Body height 172.7 cm Pawan Llanos PLANISHING PRESS OPERATOR Work Phone: [facility] 07-29-2021 11:11-0500 Body mass index (BMI) [Ratio] 31.17 kg/m2 Pawan Llanos PLANISHING PRESS OPERATOR Work Phone: [facility] 07-29-2021 11:11-0500 Body temperature 98.2 [degF] Pawan Llanos PLANISHING PRESS OPERATOR Work Phone: [facility] 07-29-2021 11:11-0500 Body weight 92.99 kg Pawan Llanos PLANISHING PRESS OPERATOR Work Phone: [facility] 07-29-2021 11:11-0500 Heart rate 81 /min Pawan Llanos PLANISHING PRESS OPERATOR Work Phone: [facility] 07-29-2021 11:11-0500 Respiratory rate 16 /min Pawan Llanos PLANISHING PRESS OPERATOR Work Phone: [facility] 07-29-2021 11:11-0500 SaO2% (BldA) [Mass fraction] 96 % Pawan Llanos PLANISHING PRESS OPERATOR Work Phone: [facility] Encounters Encounter Date Encounter Type Care Provider Facility Start: 04-18-2024 End: 04-18-2024 Subsequent hospital visit by physician Darell Rangel PT [facility] Physical Therapy Start: 04-18-2024 ambulatory [facility] Start: 12-27-2023 End: 12-29-[address] [facility] Start: 12-03-2023 End: 12-05-2023 Subsequent hospital visit by physician Dominique Additional Xray At [facility] Radiology Comment on above: Hemoptysis; Shortness of breath Start: 12-03-2023 End: 12-05-[address] [facility] Start: 07-28-2023 End: 07-28-2023 Subsequent hospital visit by physician Natacha Pelayo [facility] Physical Therapy Start: 07-26-2023 End: 07-26-2023 Subsequent hospital visit by physician Rena Boone PT [facility] Physical Therapy Start: 07-23-2023 End: 07-23-2023 [facility] Start: 07-21-2023 End: 07-21-[address] [facility] Start: 07-14-2023 Transcribe Orders Solo nolasco Work Phone: [facility] Comment on above: Abnormal MRI, thorac ic spine (Primary Dx) Start: 05-07-2023 End: 05-07-2023 Emergency department patient visit [facility] Start: 02-05-2023 End: 02-07-2023 Subsequent hospital visit by physician Dominique Additional Xray At [facility] Radiology Comment on above: Disp fx of dist phal anx of l little finger, init for opn fx; Disp fx of medial phalanx of l mid finger, init for opn fx Start: 01-21-2023 End: 01-21-2023 Subsequent hospital visit by physician Collette Ritter OT [facility] Occupational Therapy Start: 01-01-2023 End: 01-03-2023 Subsequent hospital visit by physician Solo Arita DO Work Phone: [facility] Radiology Start: 12-25-2022 End: 12-25-2022 Subsequent hospital visit by physician Collette Ritter OT [facility] Occupational Therapy Comment on above: Arrived Start: 11-27-2022 End: 11-29-2022 Subsequent hospital visit by physician Solo Arita DO Work Phone: [facility] Radiology Comment on above: Closed displaced fra cture of distal phalanx of left little finger with routine healing, subsequent encounter Right sided sciatica Start: 11-19-2022 End: 11-21-2022 Subsequent hospital visit by physician Solo Arita DO Work Phone: [facility]iology Start: 11-13-2022 End: 11-15-2022 Subsequent hospital visit by physician Dominique Jiang Rad 1 [facility] Radiology Comment on above: Closed displaced fra cture of distal phalanx of left little finger with routine healing Start: 11-13-2022 End: 11-15-2022 Subsequent hospital visit by physician Solo Arita DO Work Phone: [facility]iology Start: 11-06-2022 End: 11-08-2022 Subsequent hospital visit by physician Dominique Jiang Rad 1 [facility] Radiology Comment on above: Closed nondisplaced fracture of distal phalanx of left little finger, initial encounter Start: 11-06-2022 End: 11-08-2022 Subsequent hospital visit by physician Solo Arita DO Work Phone: [facility] Start: 10-20-2022 End: 10-20-2022 Emergency department patient visit Geovanny Lambert MD Work Phone: [facility] Comment on above: Contusion of left rendon nd, initial encounter (Primary Dx); Laceration of left middle finger without foreign body without damage to nail, initial encounter; Laceration of left ring finger without foreign body without damage to nail, initial encounter; Closed nondisplaced fracture of middle phalanx of left middle finger, initial encounter; Closed nondisplaced fracture of distal phalanx of left little finger, initial encounter Start: 10-01-2022 End: 10-01-2022 Emergency department patient visit Samia Bowers DO Work Phone: [facility] Comment on above: Acute pain of left s katalina (Primary Dx) Start: 09-04-2022 End: 09-04-2022 Subsequent hospital visit by physician Solo Arita DO Work Phone: [facility] Comment on above: Anxiety; Bipolar 1 disorder (HCC); Mixed obsessional thoughts and acts Start: 08-21-2022 End: 08-21-2022 Emergency department patient visit Scottie Sidhu MD Work Phone: [facility] Comment on above: Peripheral vertigo i nvolving right ear (Primary Dx) Start: 10-23-2021 End: 10-23-2021 Emergency department patient visit Blue Goins MD Work Phone: [facility] Start: 07-29-2021 End: 07-29-2021 ambulatory PHYSICIAN [facility] Start: 07-29-2021 End: 07-29-2021 Office outpatient new 20 minutes Pawan Llanos CNP Work Phone: [facility] [place] Comment on above: Pain in both lower e xtremities (Primary Dx); Lower leg edema; Elevated blood pressure reading; Hand dermatitis Procedures Date Procedure Procedure Detail Performing Clinician Start: 12-03-2023 Radiologic exam ches t 2 views Solo Arita DO Work Phone: Start: 02-05-2023 Radex hand minimum 3 views Josesito Castellanos MD Work Phone: Start: 11-27-2022 Radex hand minimum 3 views Josesito Castellanos MD Work Phone: Start: 11-13-2022 Radex hand minimum 3 views Josesito Castellanos MD Work Phone: Start: 11-06-2022 Radex hand minimum 3 views Josesito Castellanos MD Work Phone: Start: 10-20-2022 Radex hand minimum 3 views Geovanny Lambert MD Work Phone: Start: 10-01-2022 Radex shoulder compl ete minimum 2 views Samiaxenia Bowers DO Work Phone: Start: 09-04-2022 Comprehensive metabo lic panel Solo Arita DO Work Phone: Start: 09-04-2022 Lipid panel Solo rangel DO Work Phone: Start: 09-04-2022 PATIENT FASTING? Solo Arita DO Work Phone: Start: 08-21-2022 Ecg routine ecg w/le ast 12 lds w/i&r Scottie Sidhu MD Work Phone: Plan of Treatment Date Care Activity Detail Author Start: 09-05-2027 Lipid panel Lipids [facility] Start: 01-29-2026 Diabetes screen Diabetes screen [facility] Start: 06-30-2024 [facility] Start: 02-13-2024 COVID-19 Vaccine ( season) COVID-19 Vaccine ( season) [facility] Start: 01-20-2024 End: 01-20-2024 Patient encounter procedure 01/20/2024 7:20 AM EDT Office Visit [facility] [address] [place] [address] Solo Arita, DO [address] [place] [address] Return in about 3 months (around 01/19/2024) for ADHD. [facility] Comment on above: Return in about 3 mo nths (around 01/19/2024) for ADHD. Start: 01-13-2024 Influenza vaccination B ON [facility] Start: 09-29-2023 End: 09-29-2023 Patient encounter procedure 09/29/2023 8:00 AM EDT [facility] [address] [place] [id number] Solo Arita DO [address] [place] [address] 3 months (around 09/29/2023) for ADHD, sleep onset difficulty. [facility] Comment on above: 3 months (around 09/12) for ADHD, sleep onset difficulty. Start: 09-09-2023 End: 09-09-2023 Patient encounter procedure 09/09/2023 11:30 AM EDT Office Visit [facility] [address] [place] [address] Arpit Dean DO [address] [place] [address] Okay per provider [facility] Comment on above: Okay per provider Start: 09-05-2023 Depression Monitoring Depression Mon [facility] Start: 08-16-2023 End: 08-16-2023 Patient encounter procedure 08/16/2023 1:45 PM EST Office Visit [facility] [address] [place], [place] [address] [place] [address] Jeff Palacio MD [facility] Eve Fan [address] [address] [facility] Start: 06-10-2023 End: 06-10-2023 Patient encounter procedure 06/10/2023 Office Visit Urology Brenton Gaspar PA-C [address] [facility] [address] Dc [address] [place] [address] [facility] Start: 06-04-2023 End: 06-04-2023 Patient encounter procedure 06/04/2023 Appointment Radiology [facility] CT Scan Start: 04-30-2023 End: 04-30-2023 Patient encounter procedure 04/30/2023 Office Visit Family Medicine Solo Arita DO [address] [place] [address] [facility] Start: 03-02-2023 End: 03-02-2023 Patient encounter procedure 03/02/2023 Office Visit Neurosurgery Deidre Welch, FLATWORK FEEDER - PLANISHING PRESS OPERATOR [address] [facility] [address] [place] [address] [facility] Start: 02-12-2023 Influenza vaccination Sequenti al Influenza Vaccine (#1) [facility] Start: 01-29-2023 End: 01-29-2023 Patient encounter procedure 01/29/2023 Office Visit Family Medicine Solo Arita DO [address] [place] [address] [facility] Start: 01-12-2023 Influenza vaccination B ON [facility] Start: 01-06-2023 End: 01-06-2023 Patient encounter procedure 01/06/2023 Appointment Occupational Therapy Lizbeth Arzola OTA [address] [place] [address] [facility] Occupational Therapy Start: 01-04-2023 End: 01-04-2023 Patient encounter procedure 01/04/2023 Appointment Occupational Therapy Collette Ritter OT [facility] Occupational Therapy Start: 12-30-2022 End: 12-30-2022 Patient encounter procedure 12/30/2022 Appointment Occupational Therapy Lizbeth Arzola OTA [address] [place] [address] [facility] Start: 12-28-2022 End: 12-28-2022 Patient encounter procedure 12/28/2022 Appointment Occupational Therapy Collette Ritter OT [facility] Start: 12-04-2022 End: 12-04-2022 Patient encounter procedure 12/04/2022 Appointment Radiology [facility] Ultrasound Start: 12-03-2022 End: 12-03-2022 Patient encounter procedure 12/03/2022 Office Visit Urology Brenton Gaspar PA-C [address] [place] [address] [place] [address] [facility] Start: 11-27-2022 End: 11-27-2022 Patient encounter procedure 11/27/2022 Appointment Radiology Solo Arita DO [address] [facility] [place] [address] [facility] MRI Start: 10-30-2022 End: 10-30-2022 Patient encounter procedure 10/30/2022 Office Visit Family Solo Lam DO [address] [facility] [place] [address] [facility] Start: 10-21-2022 End: 10-21-2022 Patient encounter procedure 10/21/2022 Office Visit Family Solo Lam DO [address] [facility] [place] [address] [facility] Start: 10-02-2022 End: 10-02-2022 Patient encounter procedure 10/02/2022 Office Visit Family Solo Lam DO [address] [facility] [place] [address] [facility] Start: 01-12-2022 Influenza vaccination Flu vaccine (# 1) [facility] Start: 01-12-2022 Refusal of treatment by patient INFLUENZA VACCINE [facility] Start: 12-11-2021 Influenza vaccination Sequenti al Influenza Vaccine (#1) [facility] Comment on above: Postponed from 02/12 (Patient Refused) Start: 2021 Lipid panel Lipids [facility] Start: 02-23-2016 Diabetes screen Diabetes screen [facility] Start: 02-23-2000 DTaP/Tdap/Td vaccine (1 - Tdap) DTaP/Tdap/Td vaccine (1 - Tdap) [facility] Start: 02-23-2000 DTaP/Tdap/Td VACCINE S (1 - Tdap) DTaP/Tdap/Td VACCINES (1 - Tdap) [facility] Start: 02-23-2000 Hepatitis B vaccine (1 of 3 - 19+ 3-dose series) Hepatitis B vaccine (1 of 3 - 19+ 3-dose series) [facility] Start: 1999 Hepatitis C screening [facility] Start: 1999 HEPATITIS C SCREENING HEPATITIS C SC REENING [facility] Start: 02-23-1996 HIV screening [facility] Start: 02-23-1996 HIV SCREENING HIV SCREENING [facility] Start: 1994 Varicella vaccine (1 of 2 - 13+ 2-dose series) Varicella vaccine (1 of 2 - 13+ 2-dose series) [facility] Start: 1993 Depression [facility] Start: 1993 Depression Screen Depression Screen [facility] Start: 1993 Depression screening using PHQ-9 (Patient Health Questionnaire 9) score Depression Screening (PHQ-2/9) [facility] Start: 1986 COVID-19 Vaccine (1) COVID-19 Vaccin e (1) [facility] Start: 02-23-1984 History and physical examination, annual for health maintenance Wellness Visit [facility] Start: 1982 Varicella vaccine (1 of 2 - 2-dose childhood series) Varicella vaccine (1 of 2 - 2-dose childhood series) [facility] Start: 1981 COVID-19 Vaccine (#1) COVID-19 Vacci ne (#1) [facility] Start: 1981 Hepatitis B vaccine (1 of 3 - 3-dose series) Hepatitis B vaccine (1 of 3 - 3-dose series) [facility] Start: 1981 Tetanus vaccination Tetanus: Every 1 0yrs [facility] EKG 12 Lead EKG 12 Lead ECG Routine 08/21/2022 7:55 PM EST [facility] [employer] Work Phone: End: 11-27-2022 MRI LUMBAR SPINE WO CONTRAST [facility] Comment on above: 1 Occurrences starti ng 11/27/2022 until 11/27/2022 Payers Date Payer Category Payer Unknown [employer] [id number] 2023-Present [phone] [address] [place] [address] [id number] 2022 Unknown [employer] 2022 2022-Present [phone] [address] [place] [address] 2022 [id number] 2022 Unknown [id number] 2021 Medicaid [id number] 2014 Medicaid [id number] 1980 Unknown [id number] 1981 Unknown [id number] 1981 Unknown [id number] 1981 Unknown [id number] 1981 Unknown [id number] 1981 Unknown [id number] 1981 Unknown [id number] 1981 Unknown [id number] 1981 Unknown [id number] Social History Date Type Detail Facility Start: 07-29-2021 End: 08-21-2022 Tobacco smoking status NHIS Never smoked tobacco [facility] Start: 07-29-2021 End: 04-05-2023 Tobacco use and exposure Smokeless tobacco non-user [facility] Start: 07-29-2021 End: 04-07-2024 Alcohol intake Lifetime non-drinker (finding) [facility] Start: 1980 Sex Assigned At Not on file [facility] Start: 10-13-2021 End: 10-01-2022 Exposure to SARS-CoV-2 (event) Not sure [facility] Start: 10-23-2021 Tobacco smoking status ARIS Smokes tobacco daily [facility] History of tobacco use Cigarette Smoker [facility] Start: 10-23-2021 End: 10-14-2022 Cigarettes smoked current (pack per day) - Reported [address] [employer] Start: 08-21-2022 End: 01-29-2023 Alcohol intake Ex-drinker (finding) [employer] Phone: Start: 08-22-2022 End: 09-04-2022 History SDOH Alcohol Frequency 2 [employer] Phone: Start: 09-04-2022 End: 10-15-2022 History SDOH Financial 1 [employer] Phone: Start: 09-04-2022 History SDOH Food Worry 3 [facility] Work Phone: Start: 10-15-2022 History SDOH Alcohol Std Drinks [address] [employer] Work Phone: Start: 07-29-2021 End: 10-14-2022 Tobacco use panel [employer] Start: 07-29-2021 Gender identity Identifies as male gender (finding) [facility] Start: 07-29-2021 Sexual orientation Heterosexual (finding) [facility] Start: 04-05-2023 Tobacco smoking status NHIS Ex-smoker [employer] End: 04-05-2023 History of tobacco use Current smoker [employer] End: 04-05-2023 History of tobacco use Tobacco Use Types Packs/Day Years Used Date Smoking Tobacco: Former E-Cigarettes Quit: 04/05/2023 Smokeless Tobacco: Never [employer] How often to you hav e a drink containing alcohol? Never [facility] [employer] How many standard drinks containing alcohol do you have on a typical day? Patient does not drink [employer] How hard is it for y ou to pay for the very basics like food, housing, medical care, and heating Very hard [facility] (I/We) worried wheth er (my/our) food would run out before (I/we) got money to buy more. Often true [facility] At any time in the p ast 12 months, were you homeless or living in [facility] [including now]? Yes [facility] (I/We) worried wheth er (my/our) food would run out before (I/we) got money to buy more. Never true [facility] At any time in the p ast 12 months, were you homeless or living in [facility] [including now]? 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 Leticia Gonzalezter Date: 07/26/2023 documented in this encounter [facility] 01-21-2023 History of Present illness Narrative [facility] Date: 01/21/2023 Patient Name: Duane Mcfarlane : 1980 Patient No Showed Appt DANIA Salcido Date: 01/21/2023 documented in this encounter [facility] 12-25-2022 History of Present illness Narrative Images from the original note were not included. [facility] Outpatient Occupational Therapy Daily Note Date: 12/25/2022 Patient Name: Duane Mcfarlane : 1980 Referring provider: Dr. Banda Insurance: [employer] Diagnosis: Left hand contusion/pain with distal phalanx fractures in left digits 3 and 5 Onset Date: 12/10/22 Next Appt: Dr. Arita in January 2023; Dr. Castellanos on 01/07/23 Visit# / total visits: 07/26 Cancels/No Shows: 06/14 Subjective: Arrived to therapy session independently. Pre Treatment Pain: [x] Yes [] No Location: left 3rd digit Pain Rating: (0-10 scale) 10 Post Treatment Pain: [x] Yes [] No Location: left 3rd digit Pain Rating: (0-10 scale) 09/21 Objective: [facility] Treatment Charges: In Out Min Units [x] Modalities: hot pack 0945 [id number] 5 0 [] Ultrasound [] Ther Exercise [x] Manual Therapy [id number] [] Ther Activities [] Orthotic fit/train [] Orthotic recheck [] Other Total Treatment time 50 3 Assessment: Completed exercises/modalities as documented in Exercise Flowsheet with fair tolerance overall. Will continue to address goals and progress patient as able. [x] Progressing toward goals [] No change [] Regressing from goals [x] Patient would continue to benefit from skilled occupational therapy services in order to increase functional use of left hand. Patient Education: [] Yes [] No Method of Education: [] Verbal [] Demo [] Written Re: Comprehension of Education: [] Verbalizes understanding [] Demonstrates understanding [] Needs review Goals: Time Frame for Short Term Goals: 6 visits To increase independence with ADLs/IADLs, patient will: 1. Decrease left hand pain to a 6/10 post activity. 2. Decrease extensor lag at left MCP joints 3rd digit to -15 degrees 4th digit to -9 degrees 5th digit to -9 degrees 3. Decrease extensor lag at left PIP joints 2nd digit to -17 degrees 3rd digit to -6 degrees 4th digit to -21 degrees 5th digit to -30 degrees 4. Increase left MCP flexion 2nd digit to 40 degrees 3rd digit to 41 degrees 4th digit to 50 degrees 5th digit to 39 degrees 5. Increase left PIP flexion 2nd digit to 40 degrees 3rd digit to 18 degrees 4th digit to 35 degrees 5th digit to 44 degrees 6. Increase left DIP flexion 2nd digit to 5 degrees 3rd digit to 5 degrees 4th digit to 5 degrees 5th digit to 5 degrees 7. Decrease left digit opposition distance 2nd digit to 3.7 cm 3rd digit to 6.1 cm 4th digit to 4.7 cm 5th digit to 4.6 cm 8. Improve UEFS score to 15 or more points. 9. Demonstrate improved sensation in left 3rd digit AEB toleration of soft texture (cotton balls) x2 minutes/30 seconds. Time Frame for Halfway Goals: 12 visits To increase independence with ADLs/IADLs, patient will: 1. Decrease left hand pain to a 4/10 post activity. 2. Decrease extensor lag at left MCP joints 3rd digit to -10 degrees 4th digit to -4 degrees 5th digit to -4 degrees 3. Decrease extensor lag at left PIP joints 2nd digit to -12 degrees 3rd digit to -1 degrees 4th digit to -16 degrees 5th digit to -25 degrees 4. Increase left MCP flexion 2nd digit to 45 degrees 3rd digit to 46 degrees 4th digit to 55 degrees 5th digit to 44 degrees. 5. Increase left PIP flexion 2nd digit to 45 degrees 3rd digit to 23 degrees 4th digit to 40 degrees 5th digit to 49 degrees 6. Increase left DIP flexion 2nd digit to 10 degrees 3rd digit to 10 degrees 4th digit to 10 degrees 5th digit to 10 degrees 7. Decrease left digit opposition distance 2nd digit to 3.4 cm 3rd digit to 5.8 cm 4th digit to 4.4 cm 5th digit to 4.3 cm 8. Improve UEFS score to 24 or more points. 9. Demonstrate improved sensation in left 3rd digit AEB toleration of soft texture (cotton balls) x5 minutes. Plan: [x] Continue per current plan of care [] Hold therapy due to: [x] Specific instructions for future sessions: issue yellow Thera-putty HEP; joint blocking at DIP joints Time In: 0945 Time Out: 1035 Timed Coded Minutes: 45 (due to application of moist heat) Total Treatment Time: 50 Collette Ritter OTR/L Date: 12/25/2022 documented in this encounter [facility] [employer] 10-01-2022 History of Present illness Narrative Pt discharge insctructions reviewed with pt. Educated to take ibuprofen for pain as instructed by physician. documented in this encounter [employer] Work Phone: 10-23-2021 Emergency department Note Patient discharged to home, alert and oriented, skin warm, dry and pink. Denies needs and or questions. Will follow-up as directed, patient encouraged to return for worsening or new symptoms or other concerns. [facility] 10-23-2021 Emergency department Note Patient discharged to home, alert and oriented, skin warm, dry and pink. Denies needs and or questions. Will follow-up as directed, patient encouraged to return for worsening or new symptoms or other concerns. TRIAGE CHIEF COMPLAINT: Chief Complaint Patient presents with Back Pain HPI: [place] Mcfarlane is a 41 year old male who presents complaining of right-sided back pain, in the right buttock, he reports that it significantly worse with bending and twisting, reports that he has been incarcerated and has decreased movement in the last 4 years and he is much more active now, he thinks he overdid it doing yard work,. The patient denies any loss of bowel or bladder control, cyclic fevers unintended weight loss or night sweats, history of IV drug abuse, recent trauma falls accidents or injuries, numbness or tingling in the saddle type distribution. Reports no allergies to medications and is not a diabetic. REVIEW OF SYSTEMS: Otherwise Negative PAST MEDICAL HISTORY: History reviewed. No pertinent past medical history. FAMILY HISTORY: History reviewed. No pertinent family history. SOCIAL HISTORY: Social History Socioeconomic History Marital status: Single Spouse name: Not on file Number of children: Not on file Years of education: Not on file Highest education level: Not on file Occupational History Not on file Tobacco Use Smoking status: Current Every Day Smoker Packs/day: 1.00 Years: 30.00 Pack years: 30.00 Types: Cigarettes Smokeless tobacco: Never Used Vaping Use Vaping Use: Never used Substance and Sexual Activity Alcohol use: Never Drug use: Yes Frequency: 7.0 times per week Types: Marijuana Sexual activity: Not on file Other Topics Concern Not on file Social History Narrative Not on file Social Determinants of Health Financial Resource Strain: Not on file Food Insecurity: Not on file Transportation Needs: Not on file Physical Activity: Not on file Stress: Not on file Social Connections: Not on file Intimate Partner Violence: Not on file Housing Stability: Not on file VAPING HISTORY: E-cigarette/Vaping Questions Responses E-cigarette/Vaping Use Never User SURGICAL HISTORY: History reviewed. No pertinent surgical history. CURRENT MEDICATIONS: Home medications reviewed. ALLERGIES: Patient has no known allergies. PHYSICAL EXAM: VITAL SIGNS: Per chart CONSTITUTIONAL: Awake, oriented, appears non-toxic HENT: Atraumatic, normocephalic, oral mucosa pink and moist, airway patent EYES: Conjunctiva clear NECK: Trachea midline, non-tender, supple CARDIOVASCULAR: Normal heart rate, Normal rhythm, No murmurs, rubs, gallops PULMONARY/CHEST: Clear to auscultation, no rhonchi, wheezes, or rales. Symmetrical breath sounds. Non-tender. Back: Right-sided sacroiliac tenderness with mild right-sided paraspinal lumbar muscle tenderness to palpation no midline spinal tenderness palpation no step-offs or deformities ABDOMINAL: Non-distended, soft, non-tender. NEUROLOGIC: Non-focal EXTREMITIES: No clubbing, cyanosis, or edema SKIN: Warm, Dry, No erythema, No rash Pertinent Labs & Imaging studies reviewed where applicable. (See chart for details) ED COURSE / MEDICAL DECISION MAKING: The patient had no evidence of they needed emergent resuscitation, and they were stable and appropriate for full evaluation. I was not concern for life or limb threatening cause of back pain there was no evidence of clinically significant or life-threatening traumatic, infectious, malignant, vascular, inflammatory or obstructive cause for the patient's pain. Based on the clinical presentation it was most consistent with a musculoskeletal cause. Symptoms were improved with Valium and Toradol topical lidocaine patch and Decadron Patient was discharged with prescriptions for They were given strict return precautions instructions to follow-up and discharged home/self-care in stable condition FINAL IMPRESSION: 1 --musculoskeletal back pain Electronically signed by: Blue Goins MD, 10/23/2021 10:41 PM Verified pt name and , orders. Medications administered per provider order. Will continue to monitor. Pt presents with complaints of lower back pain that started about 1 week ago. States he was twisting when he initially felt the pain. Pain is constant with brief periods without pain. States the pain has been progressively worsening. States today he has not been able to stand straight. No previous injuries nor surgeries. Denies numbness nor tingling to hands or feet. No obvious deformity. 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 documented in this encounter [facility] 10-23-2021 Hospital Discharge instructions Rupa Braun MD - 10/23/2021 10:40 PM EDT You were seen and evaluated here for back pain. As we discussed you likely have a musculoskeletal strain. We are sending you home with a mild muscle relaxer as well as topical Lidoderm patch. Encourage you to also take Motrin and Tylenol for the next 3 days up to 5 days to help with the inflammation. It is important that you continue to stay moving and stretch her back is much as possible. Do recommend avoiding heavy lifting for the next 2 weeks or so until your pain has improved. Return to the ER if you have worsening pain or start to develop weakness or numbness in your legs or groin region. The following attachments cannot be sent through Care Everywhere.Back Pain ([place])Lidocaine (Topical), ADULT ([place])Methocarbamol, ADULT ([place])documented in this encounter [facility] 10-23-2021 Physician Emergency department Note TRIAGE CHIEF COMPLAINT: Chief Complaint Patient presents with Back Pain HPI: [place]ane Mcfarlane is a 41 year old male who presents complaining of right-sided back pain, in the right buttock, he reports that it significantly worse with bending and twisting, reports that he has been incarcerated and has decreased movement in the last 4 years and he is much more active now, he thinks he overdid it doing yard work,. The patient denies any loss of bowel or bladder control, cyclic fevers unintended weight loss or night sweats, history of IV drug abuse, recent trauma falls accidents or injuries, numbness or tingling in the saddle type distribution. Reports no allergies to medications and is not a diabetic. REVIEW OF SYSTEMS: Otherwise Negative PAST MEDICAL HISTORY: History reviewed. No pertinent past medical history. FAMILY HISTORY: History reviewed. No pertinent family history. SOCIAL HISTORY: Social History Socioeconomic History Marital status: Single Spouse name: Not on file Number of children: Not on file Years of education: Not on file Highest education level: Not on file Occupational History Not on file Tobacco Use Smoking status: Current Every Day Smoker Packs/day: 1.00 Years: 30.00 Pack years: 30.00 Types: Cigarettes Smokeless tobacco: Never Used Vaping Use Vaping Use: Never used Substance and Sexual Activity Alcohol use: Never Drug use: Yes Frequency: 7.0 times per week Types: Marijuana Sexual activity: Not on file Other Topics Concern Not on file Social History Narrative Not on file Social Determinants of Health Financial Resource Strain: Not on file Food Insecurity: Not on file Transportation Needs: Not on file Physical Activity: Not on file Stress: Not on file Social Connections: Not on file Intimate Partner Violence: Not on file Housing Stability: Not on file VAPING HISTORY: E-cigarette/Vaping Questions Responses E-cigarette/Vaping Use Never User SURGICAL HISTORY: History reviewed. No pertinent surgical history. CURRENT MEDICATIONS: Home medications reviewed. ALLERGIES: Patient has no known allergies. PHYSICAL EXAM: VITAL SIGNS: Per chart CONSTITUTIONAL: Awake, oriented, appears non-toxic HENT: Atraumatic, normocephalic, oral mucosa pink and moist, airway patent EYES: Conjunctiva clear NECK: Trachea midline, non-tender, supple CARDIOVASCULAR: Normal heart rate, Normal rhythm, No murmurs, rubs, gallops PULMONARY/CHEST: Clear to auscultation, no rhonchi, wheezes, or rales. Symmetrical breath sounds. Non-tender. Back: Right-sided sacroiliac tenderness with mild right-sided paraspinal lumbar muscle tenderness to palpation no midline spinal tenderness palpation no step-offs or deformities ABDOMINAL: Non-distended, soft, non-tender. NEUROLOGIC: Non-focal EXTREMITIES: No clubbing, cyanosis, or edema SKIN: Warm, Dry, No erythema, No rash Pertinent Labs & Imaging studies reviewed where applicable. (See chart for details) ED COURSE / MEDICAL DECISION MAKING: The patient had no evidence of they needed emergent resuscitation, and they were stable and appropriate for full evaluation. I was not concern for life or limb threatening cause of back pain there was no evidence of clinically significant or life-threatening traumatic, infectious, malignant, vascular, inflammatory or obstructive cause for the patient's pain. Based on the clinical presentation it was most consistent with a musculoskeletal cause. Symptoms were improved with Valium and Toradol topical lidocaine patch and Decadron Patient was discharged with prescriptions for They were given strict return precautions instructions to follow-up and discharged home/self-care in stable condition FINAL IMPRESSION: 1 --musculoskeletal back pain Electronically signed by: Blue Goins MD, 10/23/2021 10:41 PM T [facility] Work Phone: 10-23-2021 Emergency department Note Verified pt name and , orders. Medications administered per provider order. Will continue to monitor. [facility] 10-23-2021 Emergency department Note Pt presents with complaints of lower back pain that started about 1 week ago. States he was twisting when he initially felt the pain. Pain is constant with brief periods without pain. States the pain has been progressively worsening. States today he has not been able to stand straight. No previous injuries nor surgeries. Denies numbness nor tingling to hands or feet. No obvious deformity. 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 T [facility] 07-29-2021 Instructions Pawan Llanos CNP - 07/29/2021 11:30 AM EST Images from the original note were not included. Elevated Blood Pressure: Care Instructions Your Care Instructions Blood pressure is a measure of how hard the blood pushes against the romano of your arteries. It's normal for blood pressure to go up and down throughout the day. But if it stays up over time, you have high blood pressure. Two numbers tell you your blood pressure. The first number is the systolic pressure. It shows how hard the blood pushes when your heart is pumping. The second number is the diastolic pressure. It shows how hard the blood pushes between heartbeats, when your heart is relaxed and filling with blood. An ideal blood pressure in adults is less than 120/80 (say 120 over 80 ). High blood pressure is 140/90 or higher. You have high blood pressure if your top number is 140 or higher or your bottom number is 90 or higher, or both. The main test for high blood pressure is simple, fast, and painless. To diagnose high blood pressure, your doctor will test your blood pressure at different times. After testing your blood pressure, your doctor may ask you to test it again when you are home. If you are diagnosed with high blood pressure, you can work with your doctor to make a long-term plan to manage it. Follow-up care is a hernandez part of your treatment and safety. Be sure to make and go to all appointments, and call your doctor if you are having problems. It's also a good idea to know your test results and keep a list of the medicines you take. How can you care for yourself at home? Do not smoke. Smoking increases your risk for heart attack and stroke. If you need help quitting, talk to your doctor about stop-smoking programs and medicines. These can increase your chances of quitting for good. Stay at a healthy weight. Try to limit how much sodium you eat to less than 2,300 milligrams (mg) a day. Your doctor may ask you to try to eat less than 1,500 mg a day. Be physically active. Get at least 30 minutes of exercise on most days of the week. Walking is a good choice. You also may want to do other activities, such as running, swimming, cycling, or playing tennis or team sports. Avoid or limit alcohol. Talk to your doctor about whether you can drink any alcohol. Eat plenty of fruits, vegetables, and low-fat dairy products. Eat less saturated and total fats. Learn how to check your blood pressure at home. When should you call for help? Call your doctor now or seek immediate medical care if: ? Your blood pressure is much higher than normal (such as 180/110 or higher). ? You think high blood pressure is causing symptoms such as: Severe headache. Blurry vision. ?Watch closely for changes in your health, and be sure to contact your doctor if: ? You do not get better as expected. Where can you learn more? Log into your personal health record on [email or web address] and enter F644 in the Education box to learn more about Elevated Blood Pressure: Care Instructions. Current as of: October 21, 2016 Content Version: [id number] [employer]. Care instructions adapted under license by your healthcare professional. If you have questions about a medical condition or this instruction, always ask your healthcare professional. [employer] disclaims any warranty or liability for your use of this information. Leg and Ankle Edema: Care Instructions Your Care Instructions Swelling in the legs, ankles, and feet is called edema. It is common after you sit or stand for a while. Long plane flights or car rides often cause swelling in the legs and feet. You may also have swelling if you have to stand for long periods of time at your job. Problems with the veins in the legs (varicose veins) and changes in hormones can also cause swelling. Sometimes the swelling in the ankles and feet is caused by a more serious problem, such as heart failure, infection, blood clots, or liver or kidney disease. Follow-up care is a hernandez part of your treatment and safety. Be sure to make and go to all appointments, and call your doctor if you are having problems. It's also a good idea to know your test results and keep a list of the medicines you take. How can you care for yourself at home? If your doctor gave you medicine, take it as prescribed. Call your doctor if you think you are having a problem with your medicine. Whenever you are resting, raise your legs up. Try to keep the swollen area higher than the level of your heart. Take breaks from standing or sitting in one position. ? Walk around to increase the blood flow in your lower legs. ? Move your feet and ankles often while you stand, or tighten and relax your leg muscles. Wear support stockings. Put them on in the morning, before swelling gets worse. Eat a balanced diet. Lose weight if you need to. Limit the amount of salt (sodium) in your diet. Salt holds fluid in the body and may increase swelling. When should you call for help? Call 911 anytime you think you may need emergency care. For example, call if: You have symptoms of a blood clot in your lung (called a pulmonary embolism). These may include: ? Sudden chest pain. ? Trouble breathing. ? Coughing up blood. Call your doctor now or seek immediate medical care if: You have signs of a blood clot, such as: ? Pain in your calf, back of the knee, thigh, or groin. ? Redness and swelling in your leg or groin. You have symptoms of infection, such as: ? Increased pain, swelling, warmth, or redness. ? Red streaks or pus. ? A fever. Watch closely for changes in your health, and be sure to contact your doctor if: Your swelling is getting worse. You have new or worsening pain in your legs. You do not get better as expected. Where can you learn more? Log into your personal health record on [email or web address].[email or web address] and enter N696 in the Education box to learn more about Leg and Ankle Edema: Care Instructions. Current as of: December 12, 2020 Content Version: 13.1 [employer]. Care instructions adapted under license by your healthcare professional. If you have questions about a medical condition or this instruction, always ask your healthcare professional. [employer] disclaims any warranty or liability for your use of this information. [place], Thank you for choosing [facility] for your healthcare needs today. Schedule follow up with one of the doctors on the PCP list. Wear compression stockings. Elevated your legs when sitting. Alternate Motrin and Tylenol for pain when needed. Go to the ER for persistent swelling, no improvement with conservative treatment. documented in this encounter [facility] 07-29-2021 History of Present illness Narrative Images from the original note were not included. Patient Name: [facility] Location: [place] [address] [address] Date Of : Date Of Visit: 1980 07/29/2021 MRN# Provider: [id number] Pawan Llanos CNP Chief Complaint Patient presents with Leg Pain NKI, bilateral leg pain and swelling, from calves down, pt recently incarcerated and thinks its from sitting around Assessment & Plan 1. Pain in both lower extremities 2. Lower leg edema 3. Elevated blood pressure reading 4. Hand dermatitis triamcinolone (KENALOG) 0.1 % cream No follow-ups on file. Medical Decision Making Client is pleasant, non-toxic in NAD with report of swelling and pain in bilateral lower legs onset after starting a new job Wednesday. Motrin without relief. He also reports peeling and cracking of some of his fingertips and nasal congestion since he moved to this state from [place]. He does not have a positive Gautam's sign or calf tenderness on exam. He also does not have pitting edema. With report that the swelling improves upon awakening and worsens when he is up during the day, I recommended compression stockings and elevation of his legs when sitting. Nursing to provide a doctor's list for follow up. Prescription steroid for the hand dermatitis. We discussed alternating Motrin with Tylenol for pain as needed and follow up PCP for elevated blood pressure. Client instructed to go to the ER for persistent swelling/worseing of leg pain. Client does not smoke or use smokeless tobacco. Declines Flu vaccination today. Additional Clinical Comments See AVS Subjective 41 y.o. male presents with Leg Pain (NKI, bilateral leg pain and swelling, from calves down, pt recently incarcerated and thinks its from sitting around) Client with bilateral lower leg swelling and pain. States he was recently released from [employer] and moved here from [place]. He started a new job on Wednesday and he is on his feet most of the day. The swelling subsides when he lies down and returns when he is up during the day. No chest pain or shortness of breath. No history of HTN. He also reports nasal congestion since he came to [place] and cracking and peeling of his fingers. Leg Pain The incident occurred 5 to 7 days ago. There was no injury mechanism. The pain is present in the left leg and right leg. The quality of the pain is described as aching. The pain is moderate. The pain has been fluctuating since onset. Pertinent negatives include no inability to bear weight, loss of motion, loss of sensation, muscle weakness, numbness or tingling. He reports no foreign bodies present. The symptoms are aggravated by weight bearing. He has tried NSAIDs for the symptoms. The treatment provided no relief. Review Of Systems Review of Systems Constitutional: Negative for fever. HENT: Positive for congestion. Negative for sore throat. Respiratory: Negative for cough and shortness of breath. Cardiovascular: Positive for leg swelling. Negative for chest pain and palpitations. Musculoskeletal: Swelling bilateral lower legs. Skin: Positive for rash. Client with peeling and cracking of some of his fingertips. Neurological: Negative for tingling and numbness. Medical History History reviewed. No pertinent past medical history. History reviewed. No pertinent surgical history. There is no problem list on file for this patient. Social History Social History Tobacco Use Smoking status: Never Smoker Smokeless tobacco: Never Used Substance Use Topics Alcohol use: Never Drug use: Never Family History No family history on file. Objective Physical Exam BP (!) 153/91 (BP Location: Left arm, Patient Position: Sitting, BP Cuff Size: Adult) Pulse 81 Temp 98.2 F (36.8 C) (Infrared) Resp 16 Ht 5' 8 Wt 93 kg (205 lb) SpO2 96% BMI 31.17 kg/m Vision/Hearing Exam:No exam data present Physical Exam Vitals and nursing note reviewed. Constitutional: General: He is not in acute distress. Appearance: Normal appearance. He is not ill-appearing, toxic-appearing or diaphoretic. HENT: Head: Normocephalic and atraumatic. Nose: Congestion present. Cardiovascular: Rate and Rhythm: Normal rate and regular rhythm. Heart sounds: Normal heart sounds. Pulmonary: Effort: Pulmonary effort is normal. Breath sounds: Normal breath sounds. Musculoskeletal: Comments: Client has no calf tenderness. No pitting edema. Left calf measures 15 1/2 inches and left ankle measures 10 inches. Right calf measures 15 1/2 inches and right ankle measures 10 inches. Negative Gautam's sign bilateral. Skin is warm and dry with pulses present. He reports tenderness of the lateral right ankle to palpation. Skin: General: Skin is warm and dry. Comments: Client with peeling and few cracks to several of his fingertips. No erythema to indicate infection. Neurological: Mental Status: He is alert and oriented to person, place, and time. Psychiatric: Mood and Affect: Mood normal. Procedure Notes Procedures Results No results found for this or any previous visit (from the past 168 hour(s)). No orders to display Orders Placed This Visit No orders of the defined types were placed in this encounter. Medication List At End Of Visit Current Outpatient Medications Medication Sig Dispense Refill triamcinolone (KENALOG) 0.1 % cream Apply topically 2 (two) times a day for 14 days . 80 g 0 No current facility-administered medications for this visit. Patient Instructions Elevated Blood Pressure: Care Instructions Your Care Instructions Blood pressure is a measure of how hard the blood pushes against the romano of your arteries. It's normal for blood pressure to go up and down throughout the day. But if it stays up over time, you have high blood pressure. Two numbers tell you your blood pressure. The first number is the systolic pressure. It shows how hard the blood pushes when your heart is pumping. The second number is the diastolic pressure. It shows how hard the blood pushes between heartbeats, when your heart is relaxed and filling with blood. An ideal blood pressure in adults is less than 120/80 (say 120 over 80 ). High blood pressure is 140/90 or higher. You have high blood pressure if your top number is 140 or higher or your bottom number is 90 or higher, or both. The main test for high blood pressure is simple, fast, and painless. To diagnose high blood pressure, your doctor will test your blood pressure at different times. After testing your blood pressure, your doctor may ask you to test it again when you are home. If you are diagnosed with high blood pressure, you can work with your doctor to make a long-term plan to manage it. Follow-up care is a hernandez part of your treatment and safety. Be sure to make and go to all appointments, and call your doctor if you are having problems. It's also a good idea to know your test results and keep a list of the medicines you take. How can you care for yourself at home? Do not smoke. Smoking increases your risk for heart attack and stroke. If you need help quitting, talk to your doctor about stop-smoking programs and medicines. These can increase your chances of quitting for good. Stay at a healthy weight. Try to limit how much sodium you eat to less than 2,300 milligrams (mg) a day. Your doctor may ask you to try to eat less than 1,500 mg a day. Be physically active. Get at least 30 minutes of exercise on most days of the week. Walking is a good choice. You also may want to do other activities, such as running, swimming, cycling, or playing tennis or team sports. Avoid or limit alcohol. Talk to your doctor about whether you can drink any alcohol. Eat plenty of fruits, vegetables, and low-fat dairy products. Eat less saturated and total fats. Learn how to check your blood pressure at home. When should you call for help? Call your doctor now or seek immediate medical care if: ? Your blood pressure is much higher than normal (such as 180/110 or higher). ? You think high blood pressure is causing symptoms such as: Severe headache. Blurry vision. ?Watch closely for changes in your health, and be sure to contact your doctor if: ? You do not get better as expected. Where can you learn more? Log into your personal health record on [email or web address] and enter F644 in the Education box to learn more about Elevated Blood Pressure: Care Instructions. Current as of: October 21, 2016 Content Version: 11.6 [id number] [employer]. Care instructions adapted under license by your healthcare professional. If you have questions about a medical condition or this instruction, always ask your healthcare professional. [employer] disclaims any warranty or liability for your use of this information. Leg and Ankle Edema: Care Instructions Your Care Instructions Swelling in the legs, ankles, and feet is called edema. It is common after you sit or stand for a while. Long plane flights or car rides often cause swelling in the legs and feet. You may also have swelling if you have to stand for long periods of time at your job. Problems with the veins in the legs (varicose veins) and changes in hormones can also cause swelling. Sometimes the swelling in the ankles and feet is caused by a more serious problem, such as heart failure, infection, blood clots, or liver or kidney disease. Follow-up care is a hernandez part of your treatment and safety. Be sure to make and go to all appointments, and call your doctor if you are having problems. It's also a good idea to know your test results and keep a list of the medicines you take. How can you care for yourself at home? If your doctor gave you medicine, take it as prescribed. Call your doctor if you think you are having a problem with your medicine. Whenever you are resting, raise your legs up. Try to keep the swollen area higher than the level of your heart. Take breaks from standing or sitting in one position. ? Walk around to increase the blood flow in your lower legs. ? Move your feet and ankles often while you stand, or tighten and relax your leg muscles. Wear support stockings. Put them on in the morning, before swelling gets worse. Eat a balanced diet. Lose weight if you need to. Limit the amount of salt (sodium) in your diet. Salt holds fluid in the body and may increase swelling. When should you call for help? Call 911 anytime you think you may need emergency care. For example, call if: You have symptoms of a blood clot in your lung (called a pulmonary embolism). These may include: ? Sudden chest pain. ? Trouble breathing. ? Coughing up blood. Call your doctor now or seek immediate medical care if: You have signs of a blood clot, such as: ? Pain in your calf, back of the knee, thigh, or groin. ? Redness and swelling in your leg or groin. You have symptoms of infection, such as: ? Increased pain, swelling, warmth, or redness. ? Red streaks or pus. ? A fever. Watch closely for changes in your health, and be sure to contact your doctor if: Your swelling is getting worse. You have new or worsening pain in your legs. You do not get better as expected. Where can you learn more? Log into your personal health record on [email or web address] and enter N696 in the Education box to learn more about Leg and Ankle Edema: Care Instructions. Current as of: December 12, 2020 Content Version: 13.1 [employer]. Care instructions adapted under license by your healthcare professional. If you have questions about a medical condition or this instruction, always ask your healthcare professional. [employer] disclaims any warranty or liability for your use of this information. Duane, Thank you for choosing [facility] for your healthcare needs today. Schedule follow up with one of the doctors on the PCP list. Wear compression stockings. Elevated your legs when sitting. Alternate Motrin and Tylenol for pain when needed. Go to the ER for persistent swelling, no improvement with conservative treatment. documented in this encounter [facility] Diagnosis Pain in both lower extremities- Primary Lower leg edema Elevated blood pressure reading Elevated blood pressure reading without diagnosis of hypertension Hand dermatitis Contact dermatitis and other eczema, due to unspecified cause [facility] Diagnosis Acute right-sided low back pain without sciatica- Primary [facility] Diagnosis Peripheral vertigo involving right ear- Primary documented in this encounter [employer] Phone: evaluation note* Diagnosis Anxiety Anxiety state, unspecified Bipolar 1 disorder (HCC) Bipolar I disorder, most recent episode (or current) unspecified Mixed obsessional thoughts and acts documented in this encounter [employer] Phone: evaluation note* Diagnosis Acute pain of left shoulder- Primary documented in this encounter [employer] Phone: evaluation note* Diagnosis Contusion of left hand, initial encounter- Primary Laceration of left middle finger without foreign body without damage to nail, initial encounter Laceration of left ring finger without foreign body without damage to nail, initial encounter Closed nondisplaced fracture of middle phalanx of left middle finger, initial encounter Closed nondisplaced fracture of distal phalanx of left little finger, initial encounter documented in this encounter [employer] Phone: evaluation note* Diagnosis Closed nondisplaced fracture of distal phalanx of left little finger, initial encounter documented in this encounter [employer] Phone: evaluation note* Diagnosis Closed displaced fracture of distal phalanx of left little finger with routine healing

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
== END 2024-07-24 11:44 | disposition home or self-care (01) ==
PROVIDERS: Visit Provider Anesthesiology
DX: G90.512 Complex regional pain syndrome I of left upper limb (principal)
CPT/HCPCS: G0463